=== PATIENT | male | born 1940 | race Caucasian/White ===

== ENCOUNTER 2017-08-05 01:45 | Emergency (ER) | payer MEDICARE, BC ==
--- NOTE | 2017-08-05 02:30 | EDM.PDOC ---
ED HPI GENERAL MEDICAL PROBLEM - General Chief Complaint: General Stated Complaint: abd pain Time Seen by Provider: 08/05/17 02:20 Source of Information: Reports: Patient - History of Present Illness INITIAL COMMENTS - FREE TEXT/NARRATIVE: Sol is a 77 year old male who presents to the ED with complaints of left lower abdominal pain. He reports he had a bowel movement this morning, strained , and the pain has been there ever since. He reports it won't go away so he came to the ER. He has been taking Tylenol. He last took Tylenol around 2129 yesterday evening. He does report he had inguinal hernia repair on the right on May 29. He reports he still has swelling in his right testicle. Denies a hernia on the left. Denies any fever, chills, chest pain, shortness of breath, recent illness, dysuria, frequency, urgency. Does report that he has been doctoring with Dr. Hatch. He had a positive ColoGuard and is supposed to be having a colonoscopy in the near future. Outside of the Onset Date: 08/04/17 Onset Time: 09:00 Duration: Constant Location: Reports: Abdomen Quality: Reports: Ache, Dull Severity: Moderate Improves with: Reports: Medication Worsens with: Reports: None Associated Symptoms: Reports: No Other Symptoms. Denies: Confusion, Chest Pain , Cough, cough w sputum, Diaphoresis, Fever/Chills, Headaches, Malaise, Nausea/ Vomiting, Rash, Seizure, Shortness of Breath, Syncope, Weakness Treatments HOG HANDLER: Reports: Acetaminophen Right Abdomen Pain Score (Numeric/FACES): 5 - Related Data Allergies Allergy/AdvReac Type Severity Reaction Status Date / Time atorvastatin calcium Allergy Rash Verified 08/05/17 02:24 [From Lipitor] cerivastatin sodium Allergy Rash Verified 08/05/17 02:24 [From Baycol] Home Meds: Home Meds Aspirin [[place] Chewable Aspirin] 81 mg PO DAILY 05/09/14 [History] Colestipol [Colestipol HCl] 1 gm PO BID 05/09/14 [History] Lisinopril [Lisinopril] 5 mg PO DAILY 05/09/14 [History] Metoprolol Succinate 50 mg PO DAILY 05/09/14 [History] Nitroglycerin [Nitrostat] 1 tab SL Q1H PRN 05/09/14 [History] Omeprazole [Omeprazole] 20 mg PO DAILY 05/09/14 [History] Rosuvastatin Calcium [Crestor] 20 mg PO Q48H 05/09/14 [History] Warfarin [Coumadin] 5 mg PO DAILY 05/09/14 [History] Hydrocodone/Acetaminophen [[place] 5-325 Tablet] 1 each PO Q6H PRN #15 tablet [Rx] NIFEdipine [Procardia] 10 mg PO DAILY #5 cap 08/05/17 [Rx] Tamsulosin [Tamsulosin 24 Hr] 0.4 mg PO DAILY #5 cap.er 08/05/17 [Rx] Social & Family History - Tobacco Use Smoking Status *Q: Never Smoker Years of Tobacco use: 3 - Recreational Drug Use Recreational Drug Use: No ED ROS GENERAL - Review of Systems Review Of Systems: ROS reveals no pertinent complaints other than HPI. Constitutional: Reports: Weight Loss. Denies: Fever, Chills, Weakness, Fatigue HEENT: Reports: No Symptoms Respiratory: Reports: No Symptoms. Denies: Shortness of Breath, Cough Cardiovascular: Reports: No Symptoms. Denies: Chest Pain, Dyspnea on Exertion, Edema, Lightheadedness, Syncope Endocrine: Reports: No Symptoms GI/Abdominal: Reports: Abdominal Pain (LLQ), Decreased Appetite. Denies: Black Stool, Bloody Stool, Constipation, Diarrhea, Hematochezia, Melena, Nausea, Vomiting : Reports: No Symptoms. Denies: Dysuria Neurological: Reports: No Symptoms Psychiatric: Reports: No Symptoms ED EXAM, GENERAL - Physical Exam Exam: See Below Exam Limited By: No Limitations General Appearance: Alert, WD/WN, No Apparent Distress Head: Atraumatic, Normocephalic Neck: Normal Inspection, Supple, Non-Tender, Full Range of Motion Respiratory/Chest: No Respiratory Distress, Lungs Clear, No Accessory Muscle Use , Chest Non-Tender, Decreased Breath Sounds Cardiovascular: Normal Peripheral Pulses, Regular Rate, Rhythm, No Edema, No Gallop, No JVD, No Murmur, No Rub GI/Abdominal: Normal Bowel Sounds, Soft, No Organomegaly, No Distention, No Abnormal Bruit, No Mass, Pelvis Stable, Tender (left lower quadrant/pelvic region). No: Guarding, Rigid, Rebound (Male) Exam: Hernia, Scrotal Swelling (right), Scrotum Tenderness (R). No: Circumcised Rectal (Males) Exam: Normal Exam Back Exam: Normal Inspection, Full Range of Motion. No: CVA Tenderness (L), CVA Tenderness (R) Extremities: Normal Inspection, Normal Range of Motion, Non-Tender, Normal Capillary Refill, No Pedal Edema Neurological: Alert, Oriented, CN II-XII Intact, Normal Cognition, Normal Gait, Normal Reflexes, No Motor/Sensory Deficits Psychiatric: Normal Affect, Normal Mood Skin Exam: Warm, Dry, Intact, Normal Color, No Rash Course - Vital Signs Last Recorded V/S: Last Vital Signs Temp 97.8 F 08/05/17 02:24 Pulse 100 08/05/17 02:24 Resp 18 08/05/17 02:24 BP 140/77 08/05/17 08:05 Pulse Ox 98 08/05/17 02:24 - Orders/Labs/Meds Orders: Active Orders 24 hr Category Date Time Status Abdomen Pelvis w Cont [CT] Stat Exams 08/05/17 02:31 Taken Sodium Chloride 0.9% [Normal Saline] 1,000 ml Med 08/05/17 04:00 Active IV ASDIRECTED fentaNYL [Sublimaze] Med 08/05/17 03:49 Active 50 mcg IVPUSH Q3H PRN Medication Orders Fentanyl (Sublimaze) 50 mcg IVPUSH Q3H PRN PRN Reason: Pain Last Admin: 08/05/17 08:09 Dose: 50 mcg Admin: 08/05/17 04:16 Dose: 50 mcg Sodium Chloride (Normal Saline) 1,000 mls @ 200 mls/hr IV ASDIRECTED WILDER Last Admin: 08/05/17 04:17 Dose: 200 mls/hr Labs: Laboratory Tests 08/05/17 08/05/17 08/05/17 Range/Units 02:15 02:15 02:15 WBC 6.4 (5.0-10.0) 10^3/uL RBC 4.70 (4.50-6.00) 10^6/uL Hgb 11.2 L (14.0-18.0) g/dL Hct 35.2 L (40.0-54.0) % MCV 74.9 L (82.0-94.0) fL MCH 23.8 L (27.0-32.0) pg MCHC 31.8 L (33.0-38.0) g/dL RDW Coeff of Laura 16.8 H (11.0-15.0) % Plt Count 289 (150-400) 10^3/uL Neut % (Auto) 88.6 H (35-85) % Lymph % (Auto) 6.7 L (10-55) % [place] % (Auto) 4.7 (0-16) % Eos % (Auto) 0 (0-5) % Baso % (Auto) 0 (0-3) % Neut # (Auto) 5.65 (1.80-7.00) 10^3/uL Lymph # (Auto) 0.43 L (1.00-4.80) 10^3/uL [place]fe # (Auto) 0.30 (0.00-0.80) 10^3/uL Eos # (Auto) 0.00 (0.00-0.45) 10^3/uL Baso # (Auto) 0.00 10^3/uL PT 42.5 H (9.7-12.3) SEC INR 3.78 H (0.92-1.18) Sodium 134 L (136-145) mEq/L Potassium 3.7 (3.5-5.0) mEq/L Chloride 98 (98-106) mEq/L Carbon Dioxide 23 (21-32) mmol/L BUN 13 (7-18) mg/dL Creatinine 1.1 (0.7-1.3) mg/dL Est Cr Clr Drug Dosing 46.16 mL/min Estimated GFR (MDRD) > 60 (>=60) mL/min Glucose 141 H (75-99) mg/dL Calcium 8.7 (8.4-10.1) mg/dL Total Bilirubin 0.8 (0.0-1.0) mg/dL AST 26 (15-37) U/L ALT 14 (12-78) U/L Alkaline Phosphatase 65 (46-116) U/L Troponin I < 0.017 (0.00-0.06) ng/mL C-Reactive Protein 5.9 H (0.2-0.8) mg/dL Total Protein 7.5 (6.4-8.2) g/dL Albumin 2.6 L (3.4-5.0) g/dL Urine Color (YELLOW) Urine Appearance (CLEAR) Urine pH (4.5-8.0) Ur Specific [place] (1.003-1.020) Urine Protein (NEGATIVE) mg/dL Urine Glucose (UA) (NEGATIVE) mg/dL Urine Ketones (NEGATIVE) mg/dL Urine Occult Blood (NEGATIVE) Urine Nitrite (NEGATIVE) Urine Bilirubin (NEGATIVE) Urine Urobilinogen (0.2-1.0) EU/dL Ur Leukocyte Esterase (NEGATIVE) Urine RBC (0-5) /HPF Urine WBC (0-5) /HPF Ur Squamous Epith Cells (NOT SEEN) /HPF Amorphous Sediment (NOT SEEN) /HPF Urine Bacteria (NOT SEEN) /HPF 08/05/17 Range/Units 02:34 WBC (5.0-10.0) 10^3/uL RBC (4.50-6.00) 10^6/uL Hgb (14.0-18.0) g/dL Hct (40.0-54.0) % MCV (82.0-94.0) fL MCH (27.0-32.0) pg MCHC (33.0-38.0) g/dL RDW Coeff of Laura (11.0-15.0) % Plt Count (150-400) 10^3/uL Neut % (Auto) (35-85) % Lymph % (Auto) (10-55) % [place] % (Auto) (0-16) % Eos % (Auto) (0-5) % Baso % (Auto) (0-3) % Neut # (Auto) (1.80-7.00) 10^3/uL Lymph # (Auto) (1.00-4.80) 10^3/uL [place] # (Auto) (0.00-0.80) 10^3/uL Eos # (Auto) (0.00-0.45) 10^3/uL Baso # (Auto) 10^3/uL PT (9.7-12.3) SEC INR (0.92-1.18) Sodium (136-145) mEq/L Potassium (3.5-5.0) mEq/L Chloride (98-106) mEq/L Carbon Dioxide (21-32) mmol/L BUN (7-18) mg/dL Creatinine (0.7-1.3) mg/dL Est Cr Clr Drug Dosing mL/min Estimated GFR (MDRD) (>=60) mL/min Glucose (75-99) mg/dL Calcium (8.4-10.1) mg/dL Total Bilirubin (0.0-1.0) mg/dL AST (15-37) U/L ALT (12-78) U/L Alkaline Phosphatase (46-116) U/L Troponin I (0.00-0.06) ng/mL C-Reactive Protein (0.2-0.8) mg/dL Total Protein (6.4-8.2) g/dL Albumin (3.4-5.0) g/dL Urine Color Yellow (YELLOW) Urine Appearance Clear (CLEAR) Urine pH 7.0 (4.5-8.0) Ur Specific [place] 1.020 (1.003-1.020) Urine Protein Trace H (NEGATIVE) mg/dL Urine Glucose (UA) Negative (NEGATIVE) mg/dL Urine Ketones 40 H (NEGATIVE) mg/dL Urine Occult Blood Trace-intact H (NEGATIVE) Urine Nitrite Negative (NEGATIVE) Urine Bilirubin Negative (NEGATIVE) Urine Urobilinogen 0.2 (0.2-1.0) EU/dL Ur Leukocyte Esterase Negative (NEGATIVE) Urine RBC 0-5 (0-5) /HPF Urine WBC 0-5 (0-5) /HPF Ur Squamous Epith Cells Occasional H (NOT SEEN) /HPF Amorphous Sediment Occasional H (NOT SEEN) /HPF Urine Bacteria Occasional H (NOT SEEN) /HPF Meds: Medications Generic Name Dose Route Start Last Admin Trade Name Freq PRN Reason Stop Dose Admin Fentanyl 50 mcg 08/05/17 03:49 08/05/17 08:09 Sublimaze IVPUSH 50 mcg Q3H PRN Administration Pain Sodium Chloride 1,000 mls @ 200 mls/hr 08/05/17 04:00 08/05/17 04:17 Normal Saline IV 200 mls/hr ASDIRECTED WILDER Administration Discontinued Medications Generic Name Dose Route Start Last Admin Trade Name Freq PRN Reason Stop Dose Admin Fentanyl 25 mcg 08/05/17 03:24 08/05/17 03:31 Sublimaze IVPUSH 08/05/17 03:25 25 mcg STAT STA Administration Iopamidol 100 ml 08/05/17 02:54 08/05/17 03:18 Isovue-300 (61%) IVPUSH 08/05/17 02:55 100 ml ONETIME ONE Administration Nifedipine 10 mg 08/05/17 07:49 08/05/17 08:05 Procardia PO 08/05/17 07:50 10 mg ONETIME ONE Administration Tamsulosin HCl 0.4 mg 08/05/17 03:49 08/05/17 04:16 Flomax PO 08/05/17 03:50 0.4 mg ONETIME ONE Administration - Radiology Interpretation Free Text/Narrative:: 1.8 mm kidney stone in UBJ. Nonobstructing. Small amount of hydronephrosis to left kidney. Will keep in extended stay ER until morning for pain control. CT Results Date: 08/05/17 CT Results Time: 03:48 - Re-Assessments/Exams Free Text/Narrative Re-Assessment/Exam: 08/05/17 02:31 Labs discussed with patient and . Will get CT of abdomen pelvis to r/o incarcerated hernia. 08/05/17 03:26 Patient reports his LLQ abdominal pain worsened after moving for CT scan. Fentanyl 25 mcg ordered. 08/05/17 08:42 Patient reports that he does not have any pain currently. He is sitting at edge of the bed eating breakfast. Appears in no acute distress. Will discharge home. Patient to follow up with Dr. Hatch on Saturday as scheduled. Departure - Departure Time of Disposition: 08:50 Disposition: Home, Self-Care 01 Condition: Good Clinical Impression: Kidney stone on left side, Hydronephrosis of left kidney - Discharge Information Referrals: Nile Hatch MD [Primary Care Provider] - Forms: ED Department Discharge Additional Instructions: Push fluids Procardia daily x 5 days Flomax daily x 5 days [place] 1 tab every 4-6 hours as needed for pain Hold Coumadin until f/u appointment on Saturday with Dr. Hatch Follow up with Dr. Hatch on Saturday - My Orders Last 24 Hours: My Active Orders 08/05/17 02:31 Abdomen Pelvis w Cont [CT] Stat 08/05/17 03:49 fentaNYL [Sublimaze] 50 mcg IVPUSH Q3H PRN 08/05/17 04:00 Sodium Chloride 0.9% [Normal Saline] 1,000 ml IV ASDIRECTED - Assessment/Plan Last 24 Hours: My Active Orders 08/05/17 02:31 Abdomen Pelvis w Cont [CT] Stat 08/05/17 03:49 fentaNYL [Sublimaze] 50 mcg IVPUSH Q3H PRN 08/05/17 04:00 Sodium Chloride 0.9% [Normal Saline] 1,000 ml IV ASDIRECTED
[2017-08-05 02:43] LABS: CHLORIDE,CL 98 mEq/L (98-106)
[2017-08-05 02:49] LABS: SODIUM,NA 134 mEq/L (136-145)
[2017-08-05] MEDS ORDERED: Iopamidol 612 MG/ML 100 ML Bottle IVPUSH ONE (02:54)
[2017-08-05] MEDS ORDERED: fentaNYL 100 MCG/2 ML SDV IVPUSH STA (03:24)
[2017-08-05] MEDS ORDERED: Tamsulosin 0.4 MG Cap.ER PO ONE (03:49)
[2017-08-05] MEDS ORDERED: Sodium Chloride 0.9% 1,000 ML IV SCH (04:00)
[2017-08-05] MEDS: fentaNYL 100 MCG/2 ML SDV IVPUSH PRN ×2 (04:16→08:09)
[2017-08-05] MEDS ORDERED: NIFEdipine 10 MG Cap PO ONE (07:49)
[2017-08-05 08:07] VITALS: BP 140/77
== END 2017-08-05 09:50 | disposition home or self-care (01) ==
LOC: CC.ED 01:45
DX: N13.2 Hydronephrosis with renal and ureteral calculous obstruction (principal); Z88.8 Allergy status to other drugs, medicaments and biological substances; Z79.82 Long term (current) use of aspirin; Z79.01 Long term (current) use of anticoagulants; Z79.899 Other long term (current) drug therapy; Z72.0 Tobacco use
CPT/HCPCS: 36415; 74177; 80053; 81001; 84484; 85025; 85610; 86140; 96361; 96374; 96375; 96376; 99284; A9270; J3010; J7030; Q9967

== ENCOUNTER → 2017-08-09 | Day surgery (SDC) | payer MEDICARE, BC ==
[~2017-08-09] MED LIST: Lactated Ringers 1,000 ML IV SCH; Propofol 200 MG/20 ML SDV IV ONE
[2017-08-09 08:31] VITALS: BP 127/63
--- NOTE | 2017-08-09 13:30 | OR ---
DATE OF OPERATION: 08/09/2017 PREOPERATIVE DIAGNOSIS: 1. GASTROESOPHAGEAL REFLUX DISEASE. 2. POSITIVE COLOGUARD. POSTOPERATIVE DIAGNOSIS: 1. GASTROESOPHAGEAL REFLUX DISEASE. 2. POSITIVE COLOGUARD. SURGEON: Dutch Chacon MD PROCEDURE: 1. EGD WITH BIOPSIES X2, KEVIN. 2. FULL-LENGTH COLONOSCOPY WITH BIOPSIES X3. FINDINGS: 1. Full-length EGD. 2. Diffuse gastritis. 3. Large hiatal hernia with spontaneous GERD without esophagitis. 4. Full-length colonoscopy. 5. Left-sided colitis, mild and nonspecific. RECOMMENDATIONS: Medical followup by Dr. Hatch. INDICATIONS: The patient was in to see Dr. Hatch. Apparently, he had a positive Cologuard and has been having some chronic GERD. Dr. Hatch recommended upper and lower endoscopy. DESCRIPTION OF PROCEDURE: The patient was prepped and draped, placed in the left lateral decubitus position. A lubricated Olympus gastroscope was inserted over a bit and advanced to cricopharyngeus area and easily intubated in the esophagus. The esophageal lining was benign in its entire course. The Z-line was crisp and sharp around 36 cm. There was a moderate sized hiatal hernia present with spontaneous reflux, but no distal esophagitis, stricturing, ulceration, or Moya's changes. The scope was advanced into the stomach through the pylorus and into the second portion of the duodenum. This and the duodenal bulb appeared benign. The scope was brought back into the stomach and retroflexed. There was a large hiatal hernia visualized from below. The upper fundus and cardia portions of the stomach were benign. The patient did have diffuse gastritis, most prominent in the antrum and appears chronic without any active change or bleeding. Two biopsies of the affected area were taken along with a KEVIN test. No other masses or lesions were seen. Air was suctioned and the scope was removed without complication. A lubricated Olympus colonoscope was inserted and safely and easily advanced to the cecum. Directly visualized the ileocecal valve and appendiceal orifice. The bowel prep was fine. Upon withdrawal of the scope, throughout the entire length of the colon, I could find no signs of any worrisome polyps, mass, ulcerations, or bleeding sites. The patient had a few scattered diverticula in the sigmoid region at the splenic flexure and extending through most of the sigmoid. There were skipped areas of colitis, very mild, and nonspecific. Biopsies were taken at the splenic flexure, sigmoid colon, and rectal vault, all the areas of colitis. Retroflexion of scope in the rectum showed no perianal lesions. I could find no signs of any worrisome polyps or masses removed throughout the length of this colon. Air was suctioned, and the scope was removed without complication. FRANKIE/PHUC /[id number]
== END ==
LOC: CC.SDS 07:10
PROVIDERS: ATTEND Family Medicine
DX: K52.9 Noninfective gastroenteritis and colitis, unspecified (principal); K62.89 Other specified diseases of anus and rectum; K57.30 Diverticulosis of large intestine without perforation or abscess without bleeding; K44.9 Diaphragmatic hernia without obstruction or gangrene; K29.50 Unspecified chronic gastritis without bleeding; K21.9 Gastro-esophageal reflux disease without esophagitis; R19.5 Other fecal abnormalities; Z79.01 Long term (current) use of anticoagulants; Z88.8 Allergy status to other drugs, medicaments and biological substances
CPT/HCPCS: 00813; 36415; 43239; 45380; 85610; 87081; 88305; J2704; J7120

== ENCOUNTER 2018-07-31 08:18 | Inpatient (IN) | payer MEDICARE, BC ==
--- NOTE | 2018-07-31 09:49 | EDM.PDOC ---
ED HPI GENERAL MEDICAL PROBLEM - General Chief Complaint: Respiratory Problem Stated Complaint: SOB Time Seen by Provider: 07/31/18 08:45 Source of Information: Reports: Patient History Limitations: Reports: No Limitations - History of Present Illness INITIAL COMMENTS - FREE TEXT/NARRATIVE: Patient presents to ER per EMS with acute onset shortness of breath. He states he got up to the bathroom this am and felt sudden shortness of breath. Did subside by the time EMS arrived but his oxygen level was mid 80s. Did improve to 98% on 2 liters of oxygen. He denies having any history of chronic lung concerns. Has not been ill, no cough or wheezing. He relates he was in the hospital in [place] 3-4 months ago for lupus. Was seen by rheumatology and started on prednisone. Has been experiencing mid back pain. No chest pain. Has not had any swelling in his legs as of late. Onset: Today, Sudden Duration: Hour(s): Location: Reports: Chest, Back Quality: Reports: Ache Severity: Moderate Improves with: Reports: Rest Worsens with: Reports: Movement Associated Symptoms: Reports: Shortness of Breath, Weakness. 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: Reports: Oxygen, See EMS Report - Related Data Allergies Allergy/AdvReac Type Severity Reaction Status Date / Time atorvastatin calcium Allergy Rash Verified 07/31/18 08:33 [From Lipitor] cerivastatin sodium Allergy Rash Verified 07/31/18 08:33 [From Baycol] lisinopril Allergy Cannot Verified 07/31/18 08:33 Remember Home Meds: Home Meds Metoprolol Succinate 50 mg PO DAILY 05/09/14 [History] Rosuvastatin Calcium [Crestor] 20 mg PO Q48H 05/09/14 [History] Calcium Carb/Magnesium Oxid/D3 [Calcium Magnesium + D] 1 tab PO DAILY 08/07/17 [ History] Cholecalciferol (Vitamin D3) [Vitamin D3] 2,000 unit PO DAILY 08/07/17 [History] Multivitamin [Multi-Day Vitamins] 1 tab PO DAILY 08/07/17 [History] Alendronate Sodium [Fosamax] 1 tab PO WEEKLY 07/31/18 [History] Ferrous Sulfate [Iron] 1 tab PO Q48H 07/31/18 [History] Ranitidine HCl [Zantac] 1 tab PO BID 07/31/18 [History] Sulfamethoxazole/Trimethoprim [Sulfamethoxazole-Tmp Ds Tablet] 1 tab PO ASDIRECTED 07/31/18 [History] predniSONE [Prednisone] 60 mg PO DAILY 07/31/18 [History] Past Medical History HEENT History: Reports: None Cardiovascular History: Reports: [place] Respiratory History: Reports: None Gastrointestinal History: Reports: None Genitourinary History: Reports: None Musculoskeletal History: Reports: None Neurological History: Reports: None Psychiatric History: Reports: None Endocrine/Metabolic History: Reports: None Other Hematologic History: diagnosed with Lupus Immunologic History: Reports: None Oncologic (Cancer) History: Reports: Prostate Dermatologic History: Reports: None - Infectious Disease History Infectious Disease History: Reports: None - Past Surgical History Head Surgeries/Procedures: Reports: None HEENT Surgical History: Reports: None Cardiovascular Surgical History: Reports: Coronary Artery Bypass, Coronary Artery Stent Respiratory Surgical History: Reports: None GI Surgical History: Reports: Cholecystectomy, Hernia, Abdominal, Sandra Fundoplication Male Surgical History: Reports: Prostatectomy Endocrine Surgical History: Reports: None Neurological Surgical History: Reports: None Musculoskeletal Surgical History: Reports: None Oncologic Surgical History: Reports: None Dermatological Surgical History: Reports: None Social & Family History - Family History Family Medical History: Noncontributory - Tobacco Use Smoking Status *Q: Former Smoker Used Tobacco, but Quit: Yes Month/Year Tobacco Last Used: 1959 ED ROS GENERAL - Review of Systems Review Of Systems: See Below Constitutional: Denies: Fever, Chills, Malaise, Weakness HEENT: Denies: Ear Pain, Rhinitis, Throat Pain, Vertigo Respiratory: Reports: Shortness of Breath. Denies: Wheezing, Cough Cardiovascular: Denies: Chest Pain, Edema, Lightheadedness Endocrine: Reports: Fatigue GI/Abdominal: Denies: Abdominal Pain, Black Stool, Bloody Stool, Nausea, Vomiting : Reports: No Symptoms Musculoskeletal: Reports: Back Pain (upper back pain) Skin: Reports: No Symptoms Neurological: Reports: No Symptoms ED EXAM, GENERAL - Physical Exam Exam: See Below Exam Limited By: No Limitations General Appearance: Alert, WD/WN, No Apparent Distress Ears: Normal External Exam, Normal TMs Nose: Normal Inspection, Normal Mucosa, No Blood Throat/Mouth: Normal Inspection, Normal Oropharynx Head: Normocephalic Neck: Normal Inspection, Supple, Non-Tender Respiratory/Chest: No Respiratory Distress, Lungs Clear, Other (Does get short of breath when ambulating) Cardiovascular: Regular Rate, Rhythm GI/Abdominal: Normal Bowel Sounds, Soft, Non-Tender Back Exam: Normal Inspection, Full Range of Motion. No: Paraspinal Tenderness, Vertebral Tenderness Extremities: Normal Inspection, No Pedal Edema Neurological: Alert, Oriented Skin Exam: Warm, Dry Course - Vital Signs Last Recorded V/S: Last Vital Signs Temp 99.0 F 07/31/18 13:07 Pulse 104 H 07/31/18 13:07 Resp 16 07/31/18 13:07 BP 139/79 07/31/18 13:07 Pulse Ox 95 07/31/18 13:07 - Orders/Labs/Meds Orders: Active Orders 24 hr Category Date Time Status Ang Chest [CT] Stat Exams 07/31/18 10:15 Taken Chest 2V [CR] Stat Exams 07/31/18 08:36 Taken Medication Orders Acetaminophen (Tylenol) 650 mg PO Q4H PRN PRN Reason: Pain (Mild 1-3)/fever Apixaban (Eliquis) 10 mg PO BID [facility] Stop: 08/06/18 20:01 Last Admin: 07/31/18 15:02 Dose: 10 mg Magnesium Hydroxide (Milk Of Magnesia) 30 ml PO Q12H PRN PRN Reason: Constipation Ondansetron HCl (Zofran Odt) 4 mg PO Q4H PRN PRN Reason: nausea, able to take PO Ondansetron HCl (Zofran) 4 mg IV Q4H PRN PRN Reason: Nausea/Vomiting Pantoprazole Sodium (Protonix Iv) 40 mg IVPUSH 0800 [facility] Last Admin: 07/31/18 15:02 Dose: 40 mg Sodium Chloride (Saline Flush) 10 ml FLUSH ASDIRECTED PRN PRN Reason: Keep Vein Open Temazepam (Restoril) 15 mg PO BEDTIME PRN PRN Reason: Sleep Labs: Laboratory Tests 07/31/18 07/31/18 07/31/18 Range/Units 08:30 08:33 08:33 WBC 18.9 H (5.0-10.0) 10^3/uL RBC 5.46 (4.50-6.00) 10^6/uL Hgb 14.6 (14.0-18.0) g/dL Hct 45.6 (40.0-54.0) % MCV 83.5 (82.0-94.0) fL MCH 26.7 L (27.0-32.0) pg MCHC 32.0 L (33.0-38.0) g/dL RDW Coeff of Laura 19.6 H (11.0-15.0) % Plt Count 94 L (150-400) 10^3/uL Add Manual Diff Yes Neutrophils % (Manual) 78 (35-85) % Band Neutrophils % 3 (0-5) % Lymphocytes % (Manual) 13 L (21-55) % Monocytes % (Manual) 3 (2-12) % Eosinophils % (Manual) 1 (0-5) % PT 11.0 (9.7-12.3) SEC INR 1.06 (0.92-1.18) APTT 20.7 L (23.2-32.3) SEC D-Dimer, Quantitative 48.18 H (0.00-0.50) Sodium (136-145) mEq/L Potassium (3.5-5.0) mEq/L Chloride (98-106) mEq/L Carbon Dioxide (21-32) mmol/L BUN (7-18) mg/dL Creatinine (0.7-1.3) mg/dL Est Cr Clr Drug Dosing mL/min Estimated GFR (MDRD) (>=60) mL/min Glucose (75-99) mg/dL Calcium (8.4-10.1) mg/dL Total Bilirubin (0.0-1.0) mg/dL AST (15-37) U/L ALT (12-78) U/L Alkaline Phosphatase (46-116) U/L Lactate Dehydrogenase (100-190) U/L Creatine Kinase (35-232) U/L Troponin I (0.00-0.06) ng/mL C-Reactive Protein 1.4 H (0.2-0.8) mg/dL NT-Pro-B Natriuret Pep (0-1000) pg/mL Total Protein (6.4-8.2) g/dL Albumin (3.4-5.0) g/dL 07/31/18 Range/Units 08:33 WBC (5.0-10.0) 10^3/uL RBC (4.50-6.00) 10^6/uL Hgb (14.0-18.0) g/dL Hct (40.0-54.0) % MCV (82.0-94.0) fL MCH (27.0-32.0) pg MCHC (33.0-38.0) g/dL RDW Coeff of Laura (11.0-15.0) % Plt Count (150-400) 10^3/uL Add Manual Diff Neutrophils % (Manual) (35-85) % Band Neutrophils % (0-5) % Lymphocytes % (Manual) (21-55) % Monocytes % (Manual) (2-12) % Eosinophils % (Manual) (0-5) % PT (9.7-12.3) SEC INR (0.92-1.18) APTT (23.2-32.3) SEC D-Dimer, Quantitative (0.00-0.50) Sodium 141 (136-145) mEq/L Potassium 4.7 (3.5-5.0) mEq/L Chloride 102 (98-106) mEq/L Carbon Dioxide 28 (21-32) mmol/L BUN 21 H (7-18) mg/dL Creatinine 1.2 (0.7-1.3) mg/dL Est Cr Clr Drug Dosing 41.80 mL/min Estimated GFR (MDRD) 58 L (>=60) mL/min Glucose 113 H (75-99) mg/dL Calcium 9.0 (8.4-10.1) mg/dL Total Bilirubin 2.1 H (0.0-1.0) mg/dL AST 32 (15-37) U/L ALT 55 (12-78) U/L Alkaline Phosphatase 76 (46-116) U/L Lactate Dehydrogenase 310 H (100-190) U/L Creatine Kinase 35 (35-232) U/L Troponin I 0.035 (0.00-0.06) ng/mL C-Reactive Protein (0.2-0.8) mg/dL NT-Pro-B Natriuret Pep 251 (0-1000) pg/mL Total Protein 7.4 (6.4-8.2) g/dL Albumin 3.3 L (3.4-5.0) g/dL Meds: Medications Generic Name Dose Route Start Last Admin Trade Name Freq PRN Reason Stop Dose Admin Acetaminophen 650 mg 07/31/18 14:38 Tylenol PO Q4H PRN Pain (Mild 1-3)/fever Apixaban 10 mg 07/31/18 15:00 07/31/18 15:02 Eliquis PO 08/06/18 20:01 10 mg BID WILDER Administration Magnesium Hydroxide 30 ml 07/31/18 14:38 Milk Of Magnesia PO Q12H PRN Constipation Ondansetron HCl 4 mg 07/31/18 14:38 Zofran Odt PO Q4H PRN nausea, able to take PO Ondansetron HCl 4 mg 07/31/18 14:38 Zofran IV Q4H PRN Nausea/Vomiting Pantoprazole Sodium 40 mg 07/31/18 14:38 07/31/18 15:02 Protonix Iv IVPUSH 40 mg 0800 [facility]ILDER Administration Sodium Chloride 10 ml 07/31/18 14:38 Saline Flush FLUSH ASDIRECTED PRN Keep Vein Open Temazepam 15 mg 07/31/18 14:38 Restoril PO BEDTIME PRN Sleep Discontinued Medications Generic Name Dose Route Start Last Admin Trade Name Freq PRN Reason Stop Dose Admin Iopamidol 100 ml 07/31/18 10:40 07/31/18 11:20 Isovue-370 (76%) IVPUSH 07/31/18 10:41 100 ml ONETIME ONE Administration - Re-Assessments/Exams Free Text/Narrative Re-Assessment/Exam: 07/31/18 Labs reviewed. WBC mildly elevated, likely from the prednisone he is on. D- dimer high at 48. Proceed with CTA of chest. While reviewing chart and discussing history with patient, he does relate that he had been on Coumadin in the past, is unsure why but charts show distant TIA. He relates he discussed with Susana his dissatisfaction of frequent blood draws for his INR so he was switched to Eliquis. This was stopped last fall due to blood in his stools. He has not noted any of that as of late. 1330 CT report received. Does have bilateral PE and moderate pulmonary hypertension. Will admit. Start on Eliquis cautiously with Protonix. Oxygen as needed as he does continue to desat with activity to mid 80s. Dr. Page aware of admission and agrees with plan. Departure - Departure Time of Disposition: 13:30 Disposition: Admitted As Inpatient 65 Condition: Fair Clinical Impression: Pulmonary emboli Qualifiers: Pulmonary embolism type: unspecified Chronicity: acute Acute cor pulmonale presence: without acute cor pulmonale Qualified Code(s): I26.99 - Other pulmonary embolism without acute cor pulmonale - Discharge Information *PRESCRIPTION DRUG MONITORING PROGRAM REVIEWED*: No *COPY OF PRESCRIPTION DRUG MONITORING REPORT IN PATIENT ADILIA: No - Problem List & Annotations (1) Pulmonary emboli SNOMED Code(s): 01970512 Code(s): I26.99 - OTHER PULMONARY EMBOLISM WITHOUT ACUTE COR PULMONALE Status: Acute Priority: High Current Visit: Yes Qualifiers: Pulmonary embolism type: unspecified Chronicity: acute Acute cor pulmonale presence: without acute cor pulmonale Qualified Code(s): I26.99 - Other pulmonary embolism without acute cor pulmonale - Problem List Review Problem List Initiated/Reviewed/Updated: Yes - My Orders Last 24 Hours: My Active Orders 07/31/18 08:36 Chest 2V [CR] Stat 07/31/18 10:15 Ang Chest [CT] Stat - Assessment/Plan Admission H&P: Please use this note as an admission H&P Last 24 Hours: My Active Orders 07/31/18 08:36 Chest 2V [CR] Stat 07/31/18 10:15 Ang Chest [CT] Stat Assessment:: Pulmonary Emboli Plan: Admit to inpatient for PE. Oxygen as needed. Start Eliquis with GI protection with Protonix.
[2018-07-31] MEDS ORDERED: Iopamidol 755 Mg/ML 100 ML Bottle IVPUSH ONE (10:40)
[2018-07-31] MEDS ORDERED: Ondansetron 4 MG Tab.DIS PO PRN (14:38)
[2018-07-31] MEDS ORDERED: Ondansetron 4 MG/2 ML SDV IV PRN (14:38)
[2018-07-31] MEDS ORDERED: Acetaminophen 325 MG Tab PO PRN (14:38)
[2018-07-31] MEDS ORDERED: Magnesium Hydroxide 400 MG/5 ML Susp 30 ML Cup PO PRN (14:38)
[2018-07-31] MEDS ORDERED: Temazepam 15 MG Cap PO PRN (14:38)
[2018-07-31] MEDS ORDERED: Sodium Chloride 0.9% 10 ML Syringe FLUSH PRN (14:38)
[2018-07-31] MEDS: Apixaban 5 MG Tab PO SCH ×2 (15:02→19:47)
[2018-07-31] MEDS: Pantoprazole 40 MG Vial IVPUSH SCH (15:02)
[2018-08-01 07:23] LABS: CHLORIDE,CL 103 mEq/L (98-106); SODIUM,NA 141 mEq/L (136-145)
[2018-08-01] MEDS: Apixaban 5 MG Tab PO SCH ×2 (08:10→19:49)
[2018-08-01] MEDS: Pantoprazole 40 MG Vial IVPUSH SCH (08:10)
[2018-08-01] MEDS: Calcium Carbonate/Vitamin D3 1250 MG-200 Unit Tab PO SCH (09:18)
[2018-08-01] MEDS: Multivitamin Tab PO SCH (09:19)
[2018-08-01] MEDS: predniSONE 20 MG Tab PO SCH (09:19)
[2018-08-01] MEDS: Metoprolol Succinate 25 MG Tab.ER PO SCH (09:19)
[2018-08-01] MEDS: Cholecalciferol (Vitamin D3) 1,000 Unit Tab PO SCH (09:20)
[2018-08-01] MEDS: Ferrous Sulfate 324 MG Tab.EC PO SCH (09:21)
[2018-08-01] MEDS: Simvastatin 40 MG Tab PO SCH (09:23)
--- NOTE | 2018-08-01 21:04 | PCM.PN ---
- General Info Date of Service: 08/01/18 Admission Dx/Problem (Free Text): Bilateral PE Functional Status: Reports: Pain Controlled, Tolerating Diet, Ambulating - Review of Systems General: Reports: Weakness. Denies: Fever HEENT: Reports: No Symptoms Pulmonary: Reports: Shortness of Breath. Denies: Cough Cardiovascular: Denies: Chest Pain, Edema, Lightheadedness Gastrointestinal: Denies: Abdominal Pain, Nausea, Vomiting Genitourinary: Reports: No Symptoms Musculoskeletal: Reports: No Symptoms Skin: Reports: No Symptoms Neurological: Reports: No Symptoms Psychiatric: Reports: No Symptoms - Patient Data Vitals - Most Recent: Last Vital Signs Temp 98.2 F 08/01/18 20:00 Pulse 99 08/01/18 20:00 Resp 20 08/01/18 20:00 BP 131/73 08/01/18 20:00 Pulse Ox 94 L 08/01/18 20:00 Weight - Most Recent: 144 lb 3.2 oz Lab Results Last 24 Hours: Laboratory Results - last 24 hr 08/01/18 08/01/18 Range/Units 07:00 07:00 WBC 12.7 H (5.0-10.0) 10^3/uL RBC 5.10 (4.50-6.00) 10^6/uL Hgb 13.6 L (14.0-18.0) g/dL Hct 42.5 (40.0-54.0) % MCV 83.3 (82.0-94.0) fL MCH 26.7 L (27.0-32.0) pg MCHC 32.0 L (33.0-38.0) g/dL RDW Coeff of Laura 19.1 H (11.0-15.0) % Plt Count 93 L (150-400) 10^3/uL Neut % (Auto) 77.8 (35-85) % Lymph % (Auto) 12.6 (10-55) % [place] % (Auto) 8.4 (0-16) % Eos % (Auto) 0.9 (0-5) % Baso % (Auto) 0.3 (0-3) % Neut # (Auto) 9.86 H (1.80-7.00) 10^3/uL Lymph # (Auto) 1.60 (1.00-4.80) 10^3/uL [place] # (Auto) 1.07 H (0.00-0.80) 10^3/uL Eos # (Auto) 0.11 (0.00-0.45) 10^3/uL Baso # (Auto) 0.04 10^3/uL Sodium 141 (136-145) mEq/L Potassium 4.3 (3.5-5.0) mEq/L Chloride 103 (98-106) mEq/L Carbon Dioxide 26 (21-32) mmol/L BUN 18 (7-18) mg/dL Creatinine 1.0 (0.7-1.3) mg/dL Est Cr Clr Drug Dosing 50.16 mL/min Estimated GFR (MDRD) > 60 (>=60) mL/min Glucose 124 H (75-99) mg/dL Calcium 8.6 (8.4-10.1) mg/dL C-Reactive Protein 3.7 H (0.2-0.8) mg/dL Med Orders - Current: Current Medications Acetaminophen (Tylenol) 650 mg PO Q4H PRN PRN Reason: Pain (Mild 1-3)/fever Apixaban (Eliquis) 10 mg PO BID [facility] Stop: 08/06/18 20:01 Last Admin: 08/01/18 19:49 Dose: 10 mg Calcium Carbonate (Calcium Carbonate/Vitamin D 1250 Mg-200 Unit) 1 tab PO DAILY [facility] Last Admin: 08/01/18 09:18 Dose: 1 tab Cholecalciferol (Vitamin D3) 2,000 units PO DAILY [facility] Last Admin: 08/01/18 09:20 Dose: 2,000 units Ferrous Sulfate (Ferrous Sulfate) 324 mg PO Q48H [facility] Last Admin: 08/01/18 09:21 Dose: 324 mg Magnesium Hydroxide (Milk Of Magnesia) 30 ml PO Q12H PRN PRN Reason: Constipation Metoprolol Succinate (Toprol Xl) 50 mg PO DAILY [facility] Last Admin: 08/01/18 09:19 Dose: 50 mg Multivitamins/Minerals/Vitamin C (Tab-A-Celso) 1 tab PO DAILY [facility] Last Admin: 08/01/18 09:19 Dose: 1 tab Ptom Alendronate Sodium [Fosamax] 1 Tab 1 tab PO Heath [facility] Ondansetron HCl (Zofran Odt) 4 mg PO Q4H PRN PRN Reason: nausea, able to take PO Ondansetron HCl (Zofran) 4 mg IV Q4H PRN PRN Reason: Nausea/Vomiting Pantoprazole Sodium (Protonix Iv) 40 mg IVPUSH 0800 [facility] Last Admin: 08/01/18 08:10 Dose: 40 mg Prednisone (Prednisone) 60 mg PO DAILY [facility] Last Admin: 08/01/18 09:19 Dose: 60 mg Simvastatin (Zocor) 40 mg PO Q48H [facility] Last Admin: 08/01/18 09:23 Dose: 40 mg Sodium Chloride (Saline Flush) 10 ml FLUSH ASDIRECTED PRN PRN Reason: Keep Vein Open Temazepam (Restoril) 15 mg PO BEDTIME PRN PRN Reason: Sleep Discontinued Medications Iopamidol (Isovue-370 (76%)) 100 ml IVPUSH ONETIME ONE Stop: 07/31/18 10:41 Last Admin: 07/31/18 11:20 Dose: 100 ml - Exam Quality Assessment: Supplemental Oxygen General: Alert, Oriented HEENT: Mucous Membr. Moist/[place] Neck: Supple Lungs: Clear to Auscultation, Normal Respiratory Effort Cardiovascular: Regular Rate, Regular Rhythm GI/Abdominal Exam: Normal Bowel Sounds, Soft, Non-Tender Extremities: Normal Inspection, No Pedal Edema Skin: Warm, Dry Neurological: No New Focal Deficit - Problem List & Annotations (1) Pulmonary emboli SNOMED Code(s): 48557910 Code(s): I26.99 - OTHER PULMONARY EMBOLISM WITHOUT ACUTE COR PULMONALE Status: Acute Priority: High Current Visit: Yes Qualifiers: Pulmonary embolism type: unspecified Chronicity: acute Acute cor pulmonale presence: without acute cor pulmonale Qualified Code(s): I26.99 - Other pulmonary embolism without acute cor pulmonale - Problem List Review Problem List Initiated/Reviewed/Updated: Yes - My Orders Last 24 Hours: My Active Orders 08/01/18 08:30 Calcium Carbonate/Vitamin D3 [Calcium Carbonate/Vitamin D 1250 MG-200 Unit] 1 tab PO DAILY Cholecalciferol (Vitamin D3) [Vitamin D3] 2,000 units PO DAILY Ferrous Sulfate 324 mg PO Q48H Metoprolol Succinate [Toprol XL] 50 mg PO DAILY Multivitamins [Tab-A-Celso] 1 tab PO DAILY Simvastatin [Zocor] 40 mg PO Q48H predniSONE 60 mg PO DAILY 08/03/18 12:00 Alendronate Sodium [Fosamax] 1 tab PO Heath - Assessment Assessment:: Bilateral Pulmonary Emboli - Plan Plan:: Patient feels good at rest this am. Does admit that feels short of breath with activity but can tolerate short distances better than was able to yesterday. Reports has had BM since admission and has not noted any blood. Oxygen sats 91- 92% on 2 liters, does drop to 86% with activity. Afebrile. Blood pressure 148/ 79. WBC 12.7 this am, CRP 3.7. Will continue with Eliquis. GI protection with Protonix. Oxygen as needed. Reevaluate in am.
[2018-08-02] MEDS: Calcium Carbonate/Vitamin D3 1250 MG-200 Unit Tab PO SCH (07:43)
[2018-08-02] MEDS: Apixaban 5 MG Tab PO SCH ×2 (07:43→19:58)
[2018-08-02] MEDS: Multivitamin Tab PO SCH (07:44)
[2018-08-02] MEDS: predniSONE 20 MG Tab PO SCH (07:44)
[2018-08-02] MEDS: Cholecalciferol (Vitamin D3) 1,000 Unit Tab PO SCH (07:45)
[2018-08-02] MEDS: Pantoprazole 40 MG Vial IVPUSH SCH (07:45)
[2018-08-02] MEDS: Metoprolol Succinate 25 MG Tab.ER PO SCH (07:50)
[2018-08-02 08:16] LABS: CHLORIDE,CL 107 mEq/L (98-106); SODIUM,NA 145 mEq/L (136-145)
--- NOTE | 2018-08-02 09:06 | PCM.PN ---
- General Info Date of Service: 08/02/18 Admission Dx/Problem (Free Text): Bilateral PE Subjective Update: Sol is a 78 year old male who was admitted to the hospital 07/31/2018 with bilateral PE. He presents to the ED with shortness of breath. He reports that he is starting to feel somewhat better. Feels like he is less short of breath with activity than day of admit. Reports he continues to have shortness of breath with exertion, but denies shortness of breath at rest. Has not had cough or fever. Nursing report he continues to desat with activity. Did attempt to wean his O2 and he got to 86% on RA when up to bathroom. Is maintaining O2 sat > 92% on 2.5 L O2. Nursing report last night patient had some bradycardia during night. Patient was asymptomatic. Pulse got as low as 45. Functional Status: Reports: Pain Controlled, Tolerating Diet, Ambulating, Urinating. Denies: New Symptoms - Review of Systems General: Reports: No Symptoms. Denies: Fever, Weakness, Malaise Pulmonary: Reports: Shortness of Breath (with exertion). Denies: Pleuritic Chest Pain, Cough, Sputum, Wheezing Cardiovascular: Reports: Dyspnea on Exertion. Denies: Chest Pain, Orthopnea, Edema, Lightheadedness Gastrointestinal: Reports: No Symptoms Genitourinary: Reports: No Symptoms Musculoskeletal: Reports: No Symptoms Skin: Reports: No Symptoms Neurological: Reports: No Symptoms Psychiatric: Reports: No Symptoms - Patient Data Vitals - Most Recent: Last Vital Signs Temp 97.5 F 08/02/18 07:25 Pulse 67 08/02/18 07:50 Resp 20 08/02/18 07:25 BP 131/73 08/02/18 07:50 Pulse Ox 93 L 08/02/18 07:25 Weight - Most Recent: 144 lb 3.2 oz Lab Results Last 24 Hours: Laboratory Results - last 24 hr 08/02/18 08/02/18 Range/Units 08:00 08:00 WBC 16.8 H (5.0-10.0) 10^3/uL RBC 4.91 (4.50-6.00) 10^6/uL Hgb 13.1 L (14.0-18.0) g/dL Hct 41.2 (40.0-54.0) % MCV 83.9 (82.0-94.0) fL MCH 26.7 L (27.0-32.0) pg MCHC 31.8 L (33.0-38.0) g/dL RDW Coeff of Laura 19.2 H (11.0-15.0) % Plt Count 108 L (150-400) 10^3/uL Neut % (Auto) 78.0 (35-85) % Lymph % (Auto) 13.5 (10-55) % [place] % (Auto) 7.6 (0-16) % Eos % (Auto) 0.7 (0-5) % Baso % (Auto) 0.2 (0-3) % Neut # (Auto) 13.10 H (1.80-7.00) 10^3/uL Lymph # (Auto) 2.26 (1.00-4.80) 10^3/uL [place] # (Auto) 1.28 H (0.00-0.80) 10^3/uL Eos # (Auto) 0.12 (0.00-0.45) 10^3/uL Baso # (Auto) 0.03 10^3/uL Sodium 145 (136-145) mEq/L Potassium 3.9 (3.5-5.0) mEq/L Chloride 107 H (98-106) mEq/L Carbon Dioxide 29 (21-32) mmol/L BUN 18 (7-18) mg/dL Creatinine 0.9 (0.7-1.3) mg/dL Est Cr Clr Drug Dosing 55.73 mL/min Estimated GFR (MDRD) > 60 (>=60) mL/min Glucose 110 H (75-99) mg/dL Calcium 8.5 (8.4-10.1) mg/dL C-Reactive Protein 4.1 H (0.2-0.8) mg/dL Med Orders - Current: Current Medications Acetaminophen (Tylenol) 650 mg PO Q4H PRN PRN Reason: Pain (Mild 1-3)/fever Apixaban (Eliquis) 10 mg PO BID [facility] Stop: 08/06/18 20:01 Last Admin: 08/02/18 07:43 Dose: 10 mg Calcium Carbonate (Calcium Carbonate/Vitamin D 1250 Mg-200 Unit) 1 tab PO DAILY [facility] Last Admin: 08/02/18 07:43 Dose: 1 tab Cholecalciferol (Vitamin D3) 2,000 units PO DAILY [facility] Last Admin: 08/02/18 07:45 Dose: 2,000 units Ferrous Sulfate (Ferrous Sulfate) 324 mg PO Q48H [facility] Last Admin: 08/01/18 09:21 Dose: 324 mg Magnesium Hydroxide (Milk Of Magnesia) 30 ml PO Q12H PRN PRN Reason: Constipation Metoprolol Succinate (Toprol Xl) 50 mg PO DAILY [facility] Last Admin: 08/02/18 07:50 Dose: 50 mg Multivitamins/Minerals/Vitamin C (Tab-A-Celso) 1 tab PO DAILY [facility] Last Admin: 08/02/18 07:44 Dose: 1 tab Ptom Alendronate Sodium [Fosamax] 1 Tab 1 tab PO Heath [facility] Ondansetron HCl (Zofran Odt) 4 mg PO Q4H PRN PRN Reason: nausea, able to take PO Ondansetron HCl (Zofran) 4 mg IV Q4H PRN PRN Reason: Nausea/Vomiting Pantoprazole Sodium (Protonix Iv) 40 mg IVPUSH 0800 [facility] Last Admin: 08/02/18 07:45 Dose: 40 mg Prednisone (Prednisone) 60 mg PO DAILY [facility] Last Admin: 08/02/18 07:44 Dose: 60 mg Simvastatin (Zocor) 40 mg PO Q48H [facility] Last Admin: 08/01/18 09:23 Dose: 40 mg Sodium Chloride (Saline Flush) 10 ml FLUSH ASDIRECTED PRN PRN Reason: Keep Vein Open Temazepam (Restoril) 15 mg PO BEDTIME PRN PRN Reason: Sleep Discontinued Medications Iopamidol (Isovue-370 (76%)) 100 ml IVPUSH ONETIME ONE Stop: 07/31/18 10:41 Last Admin: 07/31/18 11:20 Dose: 100 ml - Exam Quality Assessment: Supplemental Oxygen General: Alert, Oriented HEENT: Pupils Equal, Pupils Reactive, EOMI, Mucous Membr. Moist/[place] Neck: Supple Lungs: Clear to Auscultation, Normal Respiratory Effort, Decreased Breath Sounds (bases) Cardiovascular: Regular Rate, Regular Rhythm GI/Abdominal Exam: Normal Bowel Sounds, Soft, Non-Tender, No Organomegaly, No Distention, No Abnormal Bruit, No Mass, Pelvis Stable Extremities: Normal Inspection, Normal Range of Motion, Non-Tender, No Pedal Edema, Normal Capillary Refill Neurological: No New Focal Deficit Psy/Mental Status: Alert, Normal Affect, Normal Mood - Problem List & Annotations (1) Pulmonary emboli SNOMED Code(s): 04461860 Code(s): I26.99 - OTHER PULMONARY EMBOLISM WITHOUT ACUTE COR PULMONALE Status: Acute Priority: High Current Visit: Yes Qualifiers: Pulmonary embolism type: unspecified Chronicity: acute Acute cor pulmonale presence: without acute cor pulmonale Qualified Code(s): I26.99 - Other pulmonary embolism without acute cor pulmonale - Problem List Review Problem List Initiated/Reviewed/Updated: Yes - My Orders Last 24 Hours: My Active Orders 08/03/18 08:00 BMP [BASIC METABOLIC PANEL,BMP] [CHEM] DAILY C-REACTIVE PROTEIN [CHEM] DAILY CBC WITH AUTO DIFF [HEME] DAILY 08/04/18 08:00 BMP [BASIC METABOLIC PANEL,BMP] [CHEM] DAILY C-REACTIVE PROTEIN [CHEM] DAILY CBC WITH AUTO DIFF [HEME] DAILY - Assessment Assessment:: Bilateral Pulmonary Emboli - Plan Plan:: Labs all stable. Continue Eliquis and Protonix. Continue to wean O2 as able. Anticipate discharge 1-2 days pending O2 needs
[2018-08-03] MEDS: Apixaban 5 MG Tab PO SCH ×2 (07:30→19:31)
[2018-08-03] MEDS: Calcium Carbonate/Vitamin D3 1250 MG-200 Unit Tab PO SCH (07:30)
[2018-08-03] MEDS: Multivitamin Tab PO SCH (07:32)
[2018-08-03] MEDS: predniSONE 20 MG Tab PO SCH (07:32)
[2018-08-03] MEDS: Cholecalciferol (Vitamin D3) 1,000 Unit Tab PO SCH (07:33)
[2018-08-03] MEDS: Ferrous Sulfate 324 MG Tab.EC PO SCH (07:33)
[2018-08-03] MEDS: Simvastatin 40 MG Tab PO SCH (07:33)
[2018-08-03] MEDS: Pantoprazole 40 MG Vial IVPUSH SCH (07:35)
[2018-08-03] MEDS ORDERED: ALENDRONATE SODIUM PO SCH (12:00)
--- NOTE | 2018-08-03 14:11 | PCM.PN ---
- General Info Date of Service: 08/03/18 Admission Dx/Problem (Free Text): Bilateral PE Subjective Update: Sol is a 78 year old male who was admitted with bilateral PEs. He does feel like his shortness of breath is improving, but he does continue to desat into upper 80's on RA with any activity. Nursing staff report he also has labored breathing with activity. O2 has been weaned to 1.5 L and he is maintaining O2 sat > 92%. Does report occassional cough, but reports he has had this for years. No worse than normal. He denies any chest pain, shortness of breath at rest, swelling of legs, dizziness. Reports he does feel slightly short of breath with activity, but feels it has improved since admission. He did have BM yesterday and denies any dark or blood in stool. He does not have any complaints this morning. Nursing staff report pulse got to as low as 38 last evening. Patient is asymptomatic during these episodes of bradycardia. Functional Status: Reports: Pain Controlled, Tolerating Diet, Ambulating, Urinating. Denies: New Symptoms - Review of Systems General: Reports: No Symptoms. Denies: Fever, Weakness, Fatigue, Chills HEENT: Reports: No Symptoms Pulmonary: Reports: Shortness of Breath, Cough (chronic). Denies: Pleuritic Chest Pain, Sputum, Hemoptysis, Wheezing Cardiovascular: Reports: Dyspnea on Exertion. Denies: Chest Pain, Palpitations , Orthopnea, Edema, Lightheadedness Gastrointestinal: Reports: No Symptoms. Denies: Abdominal Pain, Constipation, Decreased Appetite, Diarrhea, Hematochezia, Melena, Nausea, Vomiting Genitourinary: Reports: No Symptoms Musculoskeletal: Reports: No Symptoms Skin: Reports: No Symptoms Neurological: Reports: No Symptoms Psychiatric: Reports: No Symptoms - Patient Data Vitals - Most Recent: Last Vital Signs Temp 97.4 F 08/03/18 12:00 Pulse 75 08/03/18 12:00 Resp 22 H 08/03/18 12:00 BP 150/84 H 08/03/18 12:00 Pulse Ox 94 L 08/03/18 12:00 Weight - Most Recent: 144 lb 3.2 oz Med Orders - Current: Current Medications Acetaminophen (Tylenol) 650 mg PO Q4H PRN PRN Reason: Pain (Mild 1-3)/fever Apixaban (Eliquis) 10 mg PO BID [facility] Stop: 08/06/18 20:01 Last Admin: 08/03/18 07:30 Dose: 10 mg Calcium Carbonate (Calcium Carbonate/Vitamin D 1250 Mg-200 Unit) 1 tab PO DAILY [facility] Last Admin: 08/03/18 07:30 Dose: 1 tab Cholecalciferol (Vitamin D3) 2,000 units PO DAILY [facility] Last Admin: 08/03/18 07:33 Dose: 2,000 units Ferrous Sulfate (Ferrous Sulfate) 324 mg PO Q48H [facility] Last Admin: 08/03/18 07:33 Dose: 324 mg Losartan Potassium (Cozaar) 50 mg PO DAILY [facility] Magnesium Hydroxide (Milk Of Magnesia) 30 ml PO Q12H PRN PRN Reason: Constipation Metoprolol Succinate (Toprol Xl) 25 mg PO DAILY [facility] Multivitamins/Minerals/Vitamin C (Tab-A-Celso) 1 tab PO DAILY [facility] Last Admin: 08/03/18 07:32 Dose: 1 tab Ptom Alendronate Sodium [Fosamax] 1 Tab 1 tab PO Heath [facility] Ondansetron HCl (Zofran Odt) 4 mg PO Q4H PRN PRN Reason: nausea, able to take PO Ondansetron HCl (Zofran) 4 mg IV Q4H PRN PRN Reason: Nausea/Vomiting Pantoprazole Sodium (Protonix Iv) 40 mg IVPUSH 0800 [facility] Last Admin: 08/03/18 07:35 Dose: 40 mg Prednisone (Prednisone) 60 mg PO DAILY [facility] Last Admin: 08/03/18 07:32 Dose: 60 mg Simvastatin (Zocor) 40 mg PO Q48H [facility] Last Admin: 08/03/18 07:33 Dose: 40 mg Sodium Chloride (Saline Flush) 10 ml FLUSH ASDIRECTED PRN PRN Reason: Keep Vein Open Temazepam (Restoril) 15 mg PO BEDTIME PRN PRN Reason: Sleep Discontinued Medications Iopamidol (Isovue-370 (76%)) 100 ml IVPUSH ONETIME ONE Stop: 07/31/18 10:41 Last Admin: 07/31/18 11:20 Dose: 100 ml Metoprolol Succinate (Toprol Xl) 50 mg PO DAILY [facility] Last Admin: 08/02/18 07:50 Dose: 50 mg - Exam Quality Assessment: Supplemental Oxygen (1.5 L via NC) General: Alert, Oriented, No Acute Distress Neck: Supple Lungs: Clear to Auscultation, Normal Respiratory Effort, Decreased Breath Sounds Cardiovascular: Regular Rate, Regular Rhythm GI/Abdominal Exam: Normal Bowel Sounds, Soft, Non-Tender, No Organomegaly, No Distention, No Abnormal Bruit, No Mass, Pelvis Stable Back Exam: Normal Inspection, Full Range of Motion Extremities: Normal Inspection, Normal Range of Motion, Non-Tender, No Pedal Edema, Normal Capillary Refill Neurological: No New Focal Deficit Psy/Mental Status: Alert, Normal Affect, Normal Mood - Problem List & Annotations (1) Pulmonary emboli SNOMED Code(s): 52219100 Code(s): I26.99 - OTHER PULMONARY EMBOLISM WITHOUT ACUTE COR PULMONALE Status: Acute Priority: High Current Visit: Yes Qualifiers: Pulmonary embolism type: unspecified Chronicity: acute Acute cor pulmonale presence: without acute cor pulmonale Qualified Code(s): I26.99 - Other pulmonary embolism without acute cor pulmonale (2) Hypertension SNOMED Code(s): 36609166 Code(s): I10 - ESSENTIAL (PRIMARY) HYPERTENSION Status: Acute Current Visit: Yes Qualifiers: Hypertension type: essential hypertension Qualified Code(s): I10 - Essential (primary) hypertension - Problem List Review Problem List Initiated/Reviewed/Updated: No - My Orders Last 24 Hours: My Active Orders 08/03/18 14:00 Losartan [Cozaar] 50 mg PO DAILY 08/04/18 08:00 Metoprolol Succinate [Toprol XL] 25 mg PO DAILY - Assessment Assessment:: Bilateral Pulmonary Emboli Hypertension - Plan Plan:: Continue Eliquis and Protonix. Continue to wean O2 as able. BP has been mildly elevated in addition to bradycardia at night. We will decrease metoprolol dose to 25 mg daily. Add losartan 50 mg daily. Will continue to monitor telemetry and BP. Anticipate discharge 1-2 days pending O2 needs.
[2018-08-03] MEDS: Losartan 25 MG Tab PO SCH (14:46)
[2018-08-03] MEDS: Metoprolol Succinate 25 MG Tab.ER PO SCH ×2 (14:47→14:48)
[2018-08-04 07:35] VITALS: BP 139/79
[2018-08-04] MEDS: Apixaban 5 MG Tab PO SCH (07:36)
[2018-08-04] MEDS: Cholecalciferol (Vitamin D3) 1,000 Unit Tab PO SCH (07:36)
[2018-08-04] MEDS: Pantoprazole 40 MG Vial IVPUSH SCH (07:36)
[2018-08-04] MEDS: Losartan 25 MG Tab PO SCH (07:37)
[2018-08-04] MEDS: Metoprolol Succinate 25 MG Tab.ER PO SCH (07:37)
[2018-08-04] MEDS: Multivitamin Tab PO SCH (07:38)
[2018-08-04] MEDS: Calcium Carbonate/Vitamin D3 1250 MG-200 Unit Tab PO SCH (07:38)
[2018-08-04] MEDS: predniSONE 20 MG Tab PO SCH (07:38)
[2018-08-04] MEDS ORDERED: Metoprolol Succinate 25 MG Tab.ER PO SCH (08:00)
--- NOTE | 2018-08-05 17:45 | PCM.DCSUM1 ---
Discharge Summary - Hospital Course Free Text/Narrative:: Patient presented to ER with complaints of shortness of breath. States had gotten up to the bathroom and felt short of breath and found it "hard to get his wind back'. By the time EMS had arrived on the scene, patient had felt better but his sats were in the 80s. Did respond well to oxygen at 2 liters and oxygen sats were in the high 90s. He denied any recent edema in his legs. No history of a blood clot. Had been in the hospital in [place] several months ago and was diagnosed with lupus. He is currently on prednisone 60 mg daily as a result. He does admit he had been on Coumadin in the past but was unsure why , per records was for a TIA. Was switched to Eliquis because of not wanting to have his blood drawn every month. His Eliquis was stopped back in March due to blood in his stools. Diagnosis: Stroke: No Modified Mraía Scale: No Symptoms at All Modified [place] Scale Score: 0 - Discharge Data Discharge Date: 08/04/18 Discharge Disposition: Home, Self-Care 01 Condition: Good - Discharge Diagnosis/Problem(s) (1) Pulmonary emboli SNOMED Code(s): 36192681 ICD Code: I26.99 - OTHER PULMONARY EMBOLISM WITHOUT ACUTE COR PULMONALE Status: Acute Priority: High Qualifiers: Pulmonary embolism type: unspecified Chronicity: acute Acute cor pulmonale presence: without acute cor pulmonale Qualified Code(s): I26.99 - Other pulmonary embolism without acute cor pulmonale - Patient Summary/Data Complications: none Hospital Course: Patient has overall done well during admission. For the first 3 days however, did still drop his sats with activity even while on 2 liters of oxygen. In the last 24 hours, patient was weaned off his oxygen and maintains a sat around 90% . He denies any further shortness of breath. Has been on Eliquis BID during stay, did note bright red blood in small amount in stool this am. Color of BM remains brown. Did discuss with Dr. Chacon due to need for medication due to PE. Advised to watch stools closely over the next few days and if bleeding continues or worsens, will need to likely have a IVC filter placed. Will follow up with Susana later this week for reevaluation of this. Was covered with IV PRotonix for GI protection and will be sent home on same. Losartan was started over the weekend as patient's blood pressures were elevated. Blood pressure today in good control. - Patient Instructions Diet: Usual Diet as Tolerated Activity: As Tolerated - Discharge Plan *PRESCRIPTION DRUG MONITORING PROGRAM REVIEWED*: No *COPY OF PRESCRIPTION DRUG MONITORING REPORT IN PATIENT ADILIA: No Prescriptions/Med Rec: Apixaban [Eliquis] 10 mg PO BID #66 tablet Losartan [Cozaar] 50 mg PO DAILY #30 tab Metoprolol Succinate [Toprol XL] 25 mg PO DAILY #30 tab.er Pantoprazole Sodium [Protonix] 40 mg PO DAILY #30 tablet. Home Medications: Home Meds Rosuvastatin Calcium [Crestor] 20 mg PO Q48H 05/09/14 [History] Calcium Carb/Magnesium Oxid/D3 [Calcium Magnesium + D] 1 tab PO DAILY 08/07/17 [ History] Cholecalciferol (Vitamin D3) [Vitamin D3] 2,000 unit PO DAILY 08/07/17 [History] Multivitamin [Multi-Day Vitamins] 1 tab PO DAILY 08/07/17 [History] Alendronate Sodium [Fosamax] 1 tab PO WEEKLY 07/31/18 [History] Ferrous Sulfate [Iron] 1 tab PO Q48H 07/31/18 [History] Sulfamethoxazole/Trimethoprim [Sulfamethoxazole-Tmp Ds Tablet] 1 tab PO ASDIRECTED 07/31/18 [History] predniSONE [Prednisone] 60 mg PO DAILY 07/31/18 [History] Apixaban [Eliquis] 10 mg PO BID #66 tablet 08/04/18 [Rx] Losartan [Cozaar] 50 mg PO DAILY #30 tab 08/04/18 [Rx] Metoprolol Succinate [Toprol XL] 25 mg PO DAILY #30 tab.er 08/04/18 [Rx] Pantoprazole Sodium [Protonix] 40 mg PO DAILY #30 tablet. 08/04/18 [Rx] Patient Handouts: Pulmonary Embolism Forms: ED Department Discharge Referrals: Susana Meehan CANARY BREEDER [ED Midlevel Provider] - (Follow up with Susana in 10 days ) - Discharge Summary/Plan Comment DC Time >30 min.: No - General Info Date of Service: 08/04/18 Admission Dx/Problem (Free Text: Bilateral PE Functional Status: Reports: Pain Controlled, Tolerating Diet, Ambulating - Review of Systems General: Denies: Weakness, Fatigue HEENT: Reports: No Symptoms Pulmonary: Denies: Shortness of Breath, Pleuritic Chest Pain Cardiovascular: Denies: Chest Pain, Edema, Lightheadedness Genitourinary: Reports: No Symptoms Musculoskeletal: Reports: No Symptoms Skin: Reports: No Symptoms - Patient Data Vitals - Most Recent: Last Vital Signs Temp 97.6 F 08/04/18 07:34 Pulse 70 08/04/18 07:37 Resp 18 08/04/18 07:34 BP 139/79 08/04/18 07:37 Pulse Ox 94 L 08/04/18 07:34 Weight - Most Recent: 144 lb 3.2 oz Med Orders - Current: Current Medications Discontinued Medications Acetaminophen (Tylenol) 650 mg PO Q4H PRN PRN Reason: Pain (Mild 1-3)/fever Apixaban (Eliquis) 10 mg PO BID [facility] Stop: 08/06/18 20:01 Last Admin: 08/04/18 07:36 Dose: 10 mg Calcium Carbonate (Calcium Carbonate/Vitamin D 1250 Mg-200 Unit) 1 tab PO DAILY [facility] Last Admin: 08/04/18 07:38 Dose: 1 tab Cholecalciferol (Vitamin D3) 2,000 units PO DAILY [facility] Last Admin: 08/04/18 07:36 Dose: 2,000 units Ferrous Sulfate (Ferrous Sulfate) 324 mg PO Q48H [facility] Last Admin: 08/03/18 07:33 Dose: 324 mg Iopamidol (Isovue-370 (76%)) 100 ml IVPUSH ONETIME ONE Stop: 07/31/18 10:41 Last Admin: 07/31/18 11:20 Dose: 100 ml Losartan Potassium (Cozaar) 50 mg PO DAILY [facility] Last Admin: 08/04/18 07:37 Dose: 50 mg Magnesium Hydroxide (Milk Of Magnesia) 30 ml PO Q12H PRN PRN Reason: Constipation Metoprolol Succinate (Toprol Xl) 50 mg PO DAILY [facility] Last Admin: 08/03/18 14:47 Dose: Not Given Metoprolol Succinate (Toprol Xl) 25 mg PO DAILY [facility] Metoprolol Succinate (Toprol Xl) 25 mg PO DAILY [facility] Last Admin: 08/04/18 07:37 Dose: 25 mg Multivitamins/Minerals/Vitamin C (Tab-A-Celso) 1 tab PO DAILY [facility] Last Admin: 08/04/18 07:38 Dose: 1 tab Ptom Alendronate Sodium [Fosamax] 1 Tab 1 tab PO Heath [facility] Ondansetron HCl (Zofran Odt) 4 mg PO Q4H PRN PRN Reason: nausea, able to take PO Ondansetron HCl (Zofran) 4 mg IV Q4H PRN PRN Reason: Nausea/Vomiting Pantoprazole Sodium (Protonix Iv) 40 mg IVPUSH 0800 [facility] Last Admin: 08/04/18 07:36 Dose: 40 mg Prednisone (Prednisone) 60 mg PO DAILY [facility] Last Admin: 08/04/18 07:38 Dose: 60 mg Simvastatin (Zocor) 40 mg PO Q48H [facility] Last Admin: 08/03/18 07:33 Dose: 40 mg Sodium Chloride (Saline Flush) 10 ml FLUSH ASDIRECTED PRN PRN Reason: Keep Vein Open Temazepam (Restoril) 15 mg PO BEDTIME PRN PRN Reason: Sleep - Exam General: Reports: Alert, Oriented HEENT: Reports: Mucous Membr. Moist/[place]ck: Reports: Supple Lungs: Reports: Clear to Auscultation, Normal Respiratory Effort Cardiovascular: Reports: Regular Rate, Regular Rhythm GI/Abdominal Exam: Normal Bowel Sounds, Soft, Non-Tender Extremities: Normal Inspection, No Pedal Edema Skin: Reports: Warm, Dry Neurological: Reports: No New Focal Deficit
== END 2018-08-04 09:55 | disposition home or self-care (01) | DRG 176 ==
LOC: CC.ED 08:18 → CC.MS 12:43 → UNDOADMIN 12:43 → CC.MS 14:23
PROVIDERS: ADMIT Physician Assistant Medical; ATTEND Family Medicine
DX: I26.99 Other pulmonary embolism without acute cor pulmonale (principal); K92.1 Melena; I27.20 Pulmonary hypertension, unspecified; I10 Essential (primary) hypertension; M32.9 Systemic lupus erythematosus, unspecified; D72.829 Elevated white blood cell count, unspecified; T38.0X5A Adverse effect of glucocorticoids and synthetic analogues, initial encounter; I25.2 Old myocardial infarction; Z79.52 Long term (current) use of systemic steroids; Z85.46 Personal history of malignant neoplasm of prostate; Z95.5 Presence of coronary angioplasty implant and graft; Z88.8 Allergy status to other drugs, medicaments and biological substances; Z79.899 Other long term (current) drug therapy; Z90.49 Acquired absence of other specified parts of digestive tract; Z90.79 Acquired absence of other genital organ(s); M54.9 Dorsalgia, unspecified; R79.1 Abnormal coagulation profile; R53.1 Weakness; R06.02 Shortness of breath; Z87.891 Personal history of nicotine dependence; Z95.1 Presence of aortocoronary bypass graft; Z86.73 Personal history of transient ischemic attack (TIA), and cerebral infarction without residual deficits
CPT/HCPCS: 36415; 71046; 71275; 80048; 80053; 82550; 83615; 83880; 84484; 85025; 85379; 85610; 85730; 86140; 93005; 99285; A9270-GY; C9113; Q9967

== ENCOUNTER 2018-10-01 08:50 | Inpatient (IN) | payer MEDICARE, BC ==
[2018-10-01] MEDS ORDERED: Acetaminophen 325 MG Tab PO PRN (10:37)
[2018-10-01] MEDS ORDERED: Sodium Chloride 0.9% 1,000 ML IV SCH (10:45)
[2018-10-01] MEDS: Iopamidol 612 MG/ML 100 ML Bottle IVPUSH ONE ×3 (11:27→13:25)
[2018-10-01] MEDS ORDERED: Levofloxacin/Dextrose 5%-Water 500 MG in Premix Bag 1 BAG IV ONE (11:30)
[2018-10-01] MEDS ORDERED: Acyclovir 500 MG in Sodium Chloride 0.9% 100 ML IV SCH ×5 (13:00→14:00)
[2018-10-01] MEDS: Acyclovir 500 MG in Sodium Chloride 0.9% 100 ML IV SCH ×2 (14:31→19:39)
[2018-10-01] MEDS: methylPREDNISolone Sodium Succinate 125 MG/2 ML SDV IVPUSH SCH (15:48)
[2018-10-02 07:30] LABS: CHLORIDE,CL 104 mEq/L (98-106); SODIUM,NA 141 mEq/L (136-145)
[2018-10-02] MEDS: Metoprolol Succinate 25 MG Tab.ER PO SCH (07:55)
[2018-10-02] MEDS: Pantoprazole 40 MG Vial IVPUSH SCH (07:56)
[2018-10-02] MEDS: cefTRIAXone 1 GM Vial IVPUSH SCH (07:56)
[2018-10-02] MEDS: Losartan 25 MG Tab PO SCH (07:56)
[2018-10-02] MEDS: predniSONE 5 MG Tab PO SCH (07:56)
[2018-10-02] MEDS: methylPREDNISolone Sodium Succinate 125 MG/2 ML SDV IVPUSH SCH (07:56)
[2018-10-02] MEDS: Gabapentin 100 MG Cap PO SCH ×3 (10:14→20:05)
[2018-10-02] MEDS: Acyclovir 500 MG in Sodium Chloride 0.9% 100 ML IV SCH ×2 (10:14→20:04)
[2018-10-02] MEDS ORDERED: Warfarin 5 MG Tab PO SCH (12:00)
[2018-10-02] MEDS ORDERED: Levofloxacin/Dextrose 5%-Water 50 ML IV SCH (12:30)
--- NOTE | 2018-10-02 20:31 | PCM.PN ---
- General Info Date of Service: 10/02/18 Admission Dx/Problem (Free Text): Herpes Zoster Cellulitis Functional Status: Reports: Pain Controlled, Tolerating Diet, Ambulating - Review of Systems General: Denies: Fever, Weakness, Fatigue HEENT: Reports: Ear Pain (Has tenderness to the outer ear). Denies: Sinus Congestion, Sore Throat, Rhinitis Pulmonary: Denies: Shortness of Breath, Cough Cardiovascular: Denies: Chest Pain, Edema, Lightheadedness Gastrointestinal: Denies: Abdominal Pain, Nausea, Vomiting Genitourinary: Reports: No Symptoms Musculoskeletal: Reports: No Symptoms Skin: Reports: Other (redness, warmth and swelling to right ear/neck) Neurological: Reports: Tingling (discomfort around right ear) Psychiatric: Reports: No Symptoms - Patient Data Vitals - Most Recent: Last Vital Signs Temp 96.9 F 10/02/18 20:00 Pulse 82 10/02/18 20:00 Resp 18 10/02/18 20:00 BP 142/82 H 10/02/18 20:00 Pulse Ox 97 10/02/18 20:00 Weight - Most Recent: 146 lb 6.191 oz Lab Results Last 24 Hours: Laboratory Results - last 24 hr 10/02/18 10/02/18 10/02/18 Range/Units 06:55 06:55 06:55 WBC 11.7 H (5.0-10.0) 10^3/uL RBC 4.98 (4.50-6.00) 10^6/uL Hgb 14.1 (14.0-18.0) g/dL Hct 42.9 (40.0-54.0) % MCV 86.1 (82.0-94.0) fL MCH 28.3 (27.0-32.0) pg MCHC 32.9 L (33.0-38.0) g/dL RDW Coeff of Laura 17.2 H (11.0-15.0) % Plt Count 160 (150-400) 10^3/uL Neut % (Auto) 79.1 (35-85) % Lymph % (Auto) 9.0 L (10-55) % Finney % (Auto) 11.7 (0-16) % Eos % (Auto) 0 (0-5) % Baso % (Auto) 0.2 (0-3) % Neut # (Auto) 9.27 H (1.80-7.00) 10^3/uL Lymph # (Auto) 1.05 (1.00-4.80) 10^3/uL Finney # (Auto) 1.37 H (0.00-0.80) 10^3/uL Eos # (Auto) 0.00 (0.00-0.45) 10^3/uL Baso # (Auto) 0.02 10^3/uL PT 21.1 H (9.7-12.3) SEC INR 2.14 H (0.92-1.18) Sodium 141 (136-145) mEq/L Potassium 4.4 (3.5-5.0) mEq/L Chloride 104 (98-106) mEq/L Carbon Dioxide 28 (21-32) mmol/L BUN 17 (7-18) mg/dL Creatinine 1.1 (0.7-1.3) mg/dL Est Cr Clr Drug Dosing 45.60 mL/min Estimated GFR (MDRD) > 60 (>=60) mL/min Glucose 125 H (75-99) mg/dL Calcium 8.8 (8.4-10.1) mg/dL C-Reactive Protein 2.7 H (0.2-0.8) mg/dL Med Orders - Current: Current Medications Acetaminophen (Tylenol) 650 mg PO Q4H PRN PRN Reason: Pain (Mild 1-3)/fever Last Admin: 10/01/18 19:50 Dose: 650 mg Ceftriaxone Sodium (Rocephin) 1 gm IVPUSH Q24H [facility] Last Admin: 10/02/18 07:56 Dose: 1 gm Gabapentin (Neurontin) 100 mg PO TID [facility] Last Admin: 10/02/18 20:05 Dose: 100 mg Acyclovir 500 mg/ Sodium (Chloride) 110 mls @ 110 mls/hr IV BID [facility] Last Admin: 10/02/18 20:04 Dose: 110 mls/hr Losartan Potassium (Cozaar) 50 mg PO DAILY [facility] Last Admin: 10/02/18 07:56 Dose: 50 mg Methylprednisolone Sodium Succinate (Solu-Medrol) 62.5 mg IVPUSH DAILY [facility] Last Admin: 10/02/18 07:56 Dose: 62.5 mg Metoprolol Succinate (Toprol Xl) 25 mg PO DAILY [facility] Last Admin: 10/02/18 07:55 Dose: 25 mg Pantoprazole Sodium (Protonix Iv) 40 mg IVPUSH Q24H [facility] Last Admin: 10/02/18 07:56 Dose: 40 mg Prednisone (Prednisone) 15 mg PO DAILY [facility] Last Admin: 10/02/18 07:56 Dose: 15 mg Warfarin Sodium (Coumadin) 5 mg PO [id number]@1200 [facility] Last Admin: 10/02/18 12:27 Dose: 5 mg Warfarin Sodium (Coumadin) 2.5 mg PO [id number]@1200 [facility] Discontinued Medications Sodium Chloride (Normal Saline) 1,000 mls @ 75 mls/hr IV ASDIRECTED [facility] Last Admin: 10/01/18 12:10 Dose: 75 mls/hr Levofloxacin/Dextrose 500 mg/ (Premix) 100 mls @ 100 mls/hr IV ONETIME ONE Stop: 10/01/18 12:29 Last Admin: 10/01/18 12:10 Dose: 100 mls/hr Levofloxacin/Dextrose (Levaquin In D5w 250 Mg/50 Ml) 50 mls @ 50 mls/hr IV Q24H [facility] Acyclovir 500 mg/ Sodium (Chloride) 110 mls @ 110 mls/hr IV Q8H [facility] Last Admin: 10/01/18 14:32 Dose: Not Given Acyclovir 500 mg/ Sodium (Chloride) 110 mls @ 110 mls/hr IV Q8H [facility] Acyclovir 500 mg/ Sodium (Chloride) 110 mls @ 110 mls/hr IV Q12H [facility] Iopamidol (Isovue-300 (61%)) 100 ml IVPUSH ONETIME ONE Stop: 10/01/18 11:28 Last Admin: 10/01/18 13:25 Dose: 100 ml - Exam General: Alert, Oriented HEENT: Other (patient has vesicular lesions to right shoulder, neck, ear and cheek. Is tender to palpation. ) Neck: Supple Lungs: Clear to Auscultation, Normal Respiratory Effort Cardiovascular: Regular Rate, Regular Rhythm GI/Abdominal Exam: Normal Bowel Sounds, Soft, Non-Tender Skin: Other (vesicular lesions, many dry and scabbed now) Wound/Incisions: No Drainage, Erythema Neurological: No New Focal Deficit - Problem List & Annotations (1) Herpes zoster SNOMED Code(s): 3356691 Code(s): B02.9 - ZOSTER WITHOUT COMPLICATIONS Status: Acute Priority: High Current Visit: Yes Qualifiers: Herpes zoster complications: without complications Qualified Code(s): B02.9 - Zoster without complications (2) Cellulitis SNOMED Code(s): 391978744 Code(s): L03.90 - CELLULITIS, UNSPECIFIED Status: Acute Priority: High Current Visit: Yes Qualifiers: Site of cellulitis: head Qualified Code(s): L03.811 - Cellulitis of head [ any part, except face] - Problem List Review Problem List Initiated/Reviewed/Updated: Yes - My Orders Last 24 Hours: My Active Orders 10/02/18 08:47 Gabapentin [Neurontin] 100 mg PO TID - Assessment Assessment:: Cellulitis of neck Herpes Zoster - Plan Plan:: Patient is doing well today. States has mild discomfort to the right ear/neck region, especially with palpation or rubs on linen. Afebrile. WBC elevated today at 11.7, CRP 2.7. Electrolytes normal. Has vesicular lesions to right shoulder, neck, and around right ear. Is tender. Will continue with IV Cleocin. Start Gabapentin due to discomfort. Reevaluate labs in am.
[2018-10-03 07:36] LABS: CHLORIDE,CL 108 mEq/L (98-106); SODIUM,NA 143 mEq/L (136-145)
[2018-10-03] MEDS: Pantoprazole 40 MG Vial IVPUSH SCH (08:41)
[2018-10-03] MEDS: Metoprolol Succinate 25 MG Tab.ER PO SCH (08:41)
[2018-10-03] MEDS: cefTRIAXone 1 GM Vial IVPUSH SCH (08:41)
[2018-10-03] MEDS: methylPREDNISolone Sodium Succinate 125 MG/2 ML SDV IVPUSH SCH (08:41)
[2018-10-03] MEDS: Gabapentin 100 MG Cap PO SCH (08:42)
[2018-10-03] MEDS: Losartan 25 MG Tab PO SCH (08:42)
[2018-10-03] MEDS: predniSONE 5 MG Tab PO SCH (08:42)
[2018-10-03] MEDS: Acyclovir 500 MG in Sodium Chloride 0.9% 100 ML IV SCH (08:43)
[2018-10-03] MEDS ORDERED: Warfarin 2.5 MG Tab PO SCH (12:00)
[2018-10-03 12:26] VITALS: BP 145/85
--- NOTE | 2018-10-04 16:32 | PCM.DCSUM1 ---
Discharge Summary - Hospital Course Free Text/Narrative:: Patient presented to clinic to see Susana for an INR check and reported "bumps on his right ear and cheek". Had initially noted a lump in this area and had progressively gotten worse and more swollen. Had low grade fever in the clinic. Noted redness, swelling and vesicular lesions to the right ear, right cheek and shoulder. CT scan of his head and neck was done that was concerning for cellulitis. No abscess. Admitted and started on IV Levaquin, steroids and Acyclovir for coverage. Diagnosis: Stroke: No Modified María Scale: No Symptoms at All Modified María Scale Score: 0 - Discharge Data Discharge Date: 10/03/18 Discharge Disposition: Home, Self-Care 01 Condition: Good - Discharge Diagnosis/Problem(s) (1) Herpes zoster SNOMED Code(s): 5280400 ICD Code: B02.9 - ZOSTER WITHOUT COMPLICATIONS Status: Acute Priority: High Qualifiers: Herpes zoster complications: without complications Qualified Code(s): B02.9 - Zoster without complications (2) Cellulitis SNOMED Code(s): 475756738 ICD Code: L03.90 - CELLULITIS, UNSPECIFIED Status: Acute Priority: High Qualifiers: Site of cellulitis: head Qualified Code(s): L03.811 - Cellulitis of head [ any part, except face] - Patient Summary/Data Complications: none Hospital Course: Patient doing well. Has been afebrile. rover tender with palpation to right ear. Lesions are dry, consistent with herpes zoster. Moderate redness and swelling yet noted. Denies shortness of breath. Does have low grade pain yet to left rib area from previous PE, no worse or better than admit. WBC on admit was 9.8, did increase to 14.5, likely related to steroids. CRP did improve from 2.5 to 1.5. INR is 2.81 so coumadin dose was adjusted due to antibiotic use. Patient is eating well. Tolerating Gabapentin for discomfort. Will discharge home on Levaquin and Valtrex. Gabapentin for discomfort. Follow up with Susana in one week, INR prior to visit. - Patient Instructions Diet: Usual Diet as Tolerated Activity: As Tolerated - Discharge Plan *PRESCRIPTION DRUG MONITORING PROGRAM REVIEWED*: No *COPY OF PRESCRIPTION DRUG MONITORING REPORT IN PATIENT ADILIA: No Prescriptions/Med Rec: Gabapentin [Neurontin] 100 mg PO TID #30 capsule Levofloxacin [Levaquin] 500 mg PO DAILY #5 tablet valACYclovir [Valtrex] 1,000 mg PO BID #10 tablet Warfarin [Coumadin] 2.5 mg PO SuMoWeFr@1200 #30 tablet Warfarin [Coumadin] 5 mg PO TuThSa@1200 #30 tablet Home Medications: Home Meds Rosuvastatin Calcium [Crestor] 20 mg PO Q48H 05/09/14 [History] Calcium Carb/Magnesium Oxid/D3 [Calcium Magnesium + D] 1 tab PO DAILY 08/07/17 [ History] Cholecalciferol (Vitamin D3) [Vitamin D3] 2,000 unit PO DAILY 08/07/17 [History] Multivitamin [Multi-Day Vitamins] 1 tab PO DAILY 08/07/17 [History] Alendronate Sodium [Fosamax] 1 tab PO WEEKLY 07/31/18 [History] Ferrous Sulfate [Iron] 1 tab PO Q48H 07/31/18 [History] Sulfamethoxazole/Trimethoprim [Sulfamethoxazole-Tmp Ds Tablet] 1 tab PO ASDIRECTED 07/31/18 [History] predniSONE [Prednisone] 15 mg PO DAILY 07/31/18 [History] Losartan [Cozaar] 50 mg PO DAILY #30 tab 08/04/18 [Rx] Metoprolol Succinate [Toprol XL] 25 mg PO DAILY #30 tab.er 08/04/18 [Rx] Pantoprazole Sodium [Protonix] 40 mg PO DAILY #30 tablet. 08/04/18 [Rx] Gabapentin [Neurontin] 100 mg PO TID #30 capsule 10/03/18 [Rx] Levofloxacin [Levaquin] 500 mg PO DAILY #5 tablet 10/03/18 [Rx] Warfarin [Coumadin] 2.5 mg PO SuMoWeFr@1200 #30 tablet 10/03/18 [Rx] Warfarin [Coumadin] 5 mg PO TuThSa@1200 #30 tablet 10/03/18 [Rx] valACYclovir [Valtrex] 1,000 mg PO BID #10 tablet 10/03/18 [Rx] Patient Handouts: Shingles - Discharge Summary/Plan Comment DC Time >30 min.: No - General Info Date of Service: 10/03/18 Admission Dx/Problem (Free Text: Herpes Zoster Cellulitis Functional Status: Reports: Pain Controlled, Tolerating Diet, Ambulating - Review of Systems General: Denies: Fever, Weakness, Fatigue HEENT: Reports: Ear Pain. Denies: Sinus Congestion Pulmonary: Reports: Pleuritic Chest Pain. Denies: Shortness of Breath, Cough Cardiovascular: Denies: Chest Pain, Edema, Lightheadedness Gastrointestinal: Denies: Abdominal Pain, Nausea, Vomiting Genitourinary: Reports: No Symptoms Musculoskeletal: Reports: No Symptoms Skin: Reports: Rash (right ear, cheek and neck) Neurological: Reports: No Symptoms - Patient Data Vitals - Most Recent: Last Vital Signs Temp 96.8 F 10/03/18 08:00 Pulse 67 10/03/18 08:41 Resp 16 10/03/18 08:00 BP 147/85 H 10/03/18 08:42 Pulse Ox 99 10/03/18 08:00 Weight - Most Recent: 146 lb 6.191 oz Med Orders - Current: Current Medications Discontinued Medications Acetaminophen (Tylenol) 650 mg PO Q4H PRN PRN Reason: Pain (Mild 1-3)/fever Last Admin: 10/01/18 19:50 Dose: 650 mg Ceftriaxone Sodium (Rocephin) 1 gm IVPUSH Q24H [facility] Last Admin: 10/03/18 08:41 Dose: 1 gm Gabapentin (Neurontin) 100 mg PO TID [facility] Last Admin: 10/03/18 08:42 Dose: 100 mg Sodium Chloride (Normal Saline) 1,000 mls @ 75 mls/hr IV ASDIRECTED [facility] Last Admin: 10/01/18 12:10 Dose: 75 mls/hr Levofloxacin/Dextrose 500 mg/ (Premix) 100 mls @ 100 mls/hr IV ONETIME ONE Stop: 10/01/18 12:29 Last Admin: 10/01/18 12:10 Dose: 100 mls/hr Levofloxacin/Dextrose (Levaquin In D5w 250 Mg/50 Ml) 50 mls @ 50 mls/hr IV Q24H [facility] Acyclovir 500 mg/ Sodium (Chloride) 110 mls @ 110 mls/hr IV Q8H [facility] Last Admin: 10/01/18 14:32 Dose: Not Given Acyclovir 500 mg/ Sodium (Chloride) 110 mls @ 110 mls/hr IV Q8H [facility] Acyclovir 500 mg/ Sodium (Chloride) 110 mls @ 110 mls/hr IV Q12H [facility] Acyclovir 500 mg/ Sodium (Chloride) 110 mls @ 110 mls/hr IV BID [facility] Last Admin: 10/03/18 08:43 Dose: 110 mls/hr Iopamidol (Isovue-300 (61%)) 100 ml IVPUSH ONETIME ONE Stop: 10/01/18 11:28 Last Admin: 10/01/18 13:25 Dose: 100 ml Losartan Potassium (Cozaar) 50 mg PO DAILY [facility] Last Admin: 10/03/18 08:42 Dose: 50 mg Methylprednisolone Sodium Succinate (Solu-Medrol) 62.5 mg IVPUSH DAILY [facility] Last Admin: 10/03/18 08:41 Dose: 62.5 mg Metoprolol Succinate (Toprol Xl) 25 mg PO DAILY [facility] Last Admin: 10/03/18 08:41 Dose: 25 mg Pantoprazole Sodium (Protonix Iv) 40 mg IVPUSH Q24H [facility] Last Admin: 10/03/18 08:41 Dose: 40 mg Prednisone (Prednisone) 15 mg PO DAILY [facility] Last Admin: 10/03/18 08:42 Dose: 15 mg Warfarin Sodium (Coumadin) 5 mg PO TuThSa@1200 [facility] Last Admin: 10/02/18 12:27 Dose: 5 mg Warfarin Sodium (Coumadin) 2.5 mg PO SuMoWeFr@1200 [facility] - Exam General: Reports: Alert, Oriented HEENT: Reports: Mucous Membr. Moist/[place] Neck: Reports: Supple Lungs: Reports: Clear to Auscultation, Normal Respiratory Effort Cardiovascular: Reports: Regular Rate, Regular Rhythm GI/Abdominal Exam: Normal Bowel Sounds, Soft, Non-Tender Extremities: Normal Inspection, No Pedal Edema Wound/Incisions: Reports: Other (Has dried lesions to right cheek, ear and trapezius area. Surrounding tissue is red. Warm. Swelling noted to right ear and neck region.)
== END 2018-10-03 11:22 | disposition home or self-care (01) | DRG 595 ==
LOC: CC.MS 08:50 → CC.FCMC 08:50 → UNDOADMIN 10:09 → CC.MS 10:09 → OBSVTOIN 10:37 → INTOOBSV 10:37 → CC.MS 10:37
PROVIDERS: ADMIT Nurse Practitioner Family; ATTEND Family Medicine
DX: B02.9 Zoster without complications (principal); J18.9 Pneumonia, unspecified organism; L03.811 Cellulitis of head [any part, except face]; D68.62 Lupus anticoagulant syndrome; K21.9 Gastro-esophageal reflux disease without esophagitis; M32.9 Systemic lupus erythematosus, unspecified; I10 Essential (primary) hypertension; Z79.01 Long term (current) use of anticoagulants; Z88.8 Allergy status to other drugs, medicaments and biological substances; Z79.899 Other long term (current) drug therapy; I25.2 Old myocardial infarction; Z95.1 Presence of aortocoronary bypass graft; Z90.49 Acquired absence of other specified parts of digestive tract; Z98.52 Vasectomy status; Z87.891 Personal history of nicotine dependence
CPT/HCPCS: 36415; 70460; 70491; 71046; 80048; 80053; 85025; 85610; 86140; 93005; A9270-GY; C9113; J0133; J0696; J1956; J2930; J7030; J7050; Q9967

== ENCOUNTER 2018-12-04 08:27 | Inpatient (IN) | payer MEDICARE, BC ==
[2018-12-04 09:01] LABS: CHLORIDE,CL 103 mEq/L (98-106); SODIUM,NA 140 mEq/L (136-145)
[2018-12-04] MEDS ORDERED: Acetaminophen 325 MG Tab PO PRN (10:48)
[2018-12-04] MEDS ORDERED: Sodium Chloride 0.9% 1,000 ML IV SCH (11:00)
[2018-12-04] MEDS: cefTRIAXone 1 GM Vial IVPUSH SCH (11:48)
[2018-12-04] MEDS: Albuterol/Ipratropium 3.0-0.5 MG/3 ML Neb Soln NEB SCH ×3 (11:49→19:31)
[2018-12-04] MEDS ORDERED: Azithromycin 500 MG in Sodium Chloride 0.9% 250 ML IV SCH (12:00)
[2018-12-04] MEDS: Ferrous Sulfate 324 MG Tab.EC PO SCH (13:21)
[2018-12-04] MEDS: Warfarin 5 MG Tab PO SCH (13:21)
[2018-12-04] MEDS: Simvastatin 40 MG Tab PO SCH (13:21)
[2018-12-04] MEDS: AZATHIOPRINE 50 MG PO SCH (19:31)
[2018-12-05] MEDS: Hydroxychloroquine 200 MG Tab PO SCH (07:55)
[2018-12-05] MEDS: Albuterol/Ipratropium 3.0-0.5 MG/3 ML Neb Soln NEB SCH ×4 (07:55→19:39)
[2018-12-05] MEDS: Losartan 25 MG Tab PO SCH (07:56)
[2018-12-05] MEDS: Metoprolol Succinate 25 MG Tab.ER PO SCH (07:57)
[2018-12-05] MEDS: Pantoprazole 40 MG Tab.CR PO SCH (07:57)
[2018-12-05] MEDS: predniSONE 5 MG Tab PO SCH (07:57)
[2018-12-05] MEDS: Multivitamin Tab PO SCH (07:57)
[2018-12-05] MEDS: AZATHIOPRINE 50 MG PO SCH ×2 (07:58→19:39)
[2018-12-05] MEDS ORDERED: Warfarin 2.5 MG Tab PO SCH (12:00)
[2018-12-05] MEDS: cefTRIAXone 1 GM Vial IVPUSH SCH (12:58)
--- NOTE | 2018-12-05 19:20 | PCM.PN ---
- General Info Date of Service: 12/05/18 Admission Dx/Problem (Free Text): RLL pneumonia Functional Status: Reports: Pain Controlled, Tolerating Diet, Ambulating - Review of Systems General: Reports: Fever, Malaise. Denies: Weakness, Fatigue HEENT: Reports: Rhinitis Pulmonary: Reports: Shortness of Breath, Cough, Sputum Cardiovascular: Denies: Chest Pain, Edema, Lightheadedness Gastrointestinal: Denies: Abdominal Pain, Nausea, Vomiting Genitourinary: Reports: No Symptoms Musculoskeletal: Reports: No Symptoms Skin: Reports: No Symptoms Neurological: Reports: No Symptoms - Patient Data Vitals - Most Recent: Last Vital Signs Temp 98.9 F 12/05/18 16:00 Pulse 94 12/05/18 16:00 Resp 18 12/05/18 16:00 BP 141/76 H 12/05/18 16:00 Pulse Ox 94 L 12/05/18 16:00 Weight - Most Recent: 144 lb 9.6 oz Lab Results Last 24 Hours: Laboratory Results - last 24 hr 12/05/18 12/05/18 12/05/18 Range/Units 07:10 07:10 07:10 WBC 8.4 (5.0-10.0) 10^3/uL RBC 4.10 L (4.50-6.00) 10^6/uL Hgb 11.9 L (14.0-18.0) g/dL Hct 37.3 L (40.0-54.0) % MCV 91.0 (82.0-94.0) fL MCH 29.0 (27.0-32.0) pg MCHC 31.9 L (33.0-38.0) g/dL RDW Coeff of Laura 15.5 H (11.0-15.0) % Plt Count 206 (150-400) 10^3/uL Neut % (Auto) 76.8 (35-85) % Lymph % (Auto) 7.2 L (10-55) % [place] % (Auto) 13.4 (0-16) % Eos % (Auto) 2.4 (0-5) % Baso % (Auto) 0.2 (0-3) % Neut # (Auto) 6.44 (1.80-7.00) 10^3/uL Lymph # (Auto) 0.60 L (1.00-4.80) 10^3/uL [place] # (Auto) 1.12 H (0.00-0.80) 10^3/uL Eos # (Auto) 0.20 (0.00-0.45) 10^3/uL Baso # (Auto) 0.02 10^3/uL PT 36.5 H (9.7-12.3) SEC INR 3.82 H (0.92-1.18) C-Reactive Protein 27.1 H (0.2-0.8) mg/dL [place] Results Last 24 Hours: Microbiology 12/04/18 13:22 Gram Stain - Final Sputum - Expectorated Sputum Culture - Preliminary Med Orders - Current: Current Medications Acetaminophen (Tylenol) 650 mg PO Q4H PRN PRN Reason: Pain (Mild 1-3)/fever Last Admin: 12/04/18 16:11 Dose: 650 mg Albuterol/Ipratropium (Duoneb 3.0-0.5 Mg/3 Ml) 3 ml NEB QIDRT [facility] Last Admin: 12/05/18 17:07 Dose: 3 ml Ceftriaxone Sodium (Rocephin) 1 gm IVPUSH Q24H [facility] Last Admin: 12/05/18 12:58 Dose: 1 gm Ferrous Sulfate (Ferrous Sulfate) 324 mg PO Q48H [facility] Last Admin: 12/04/18 13:21 Dose: 324 mg Hydroxychloroquine Sulfate (Plaquenil) 300 mg PO DAILY [facility] Last Admin: 12/05/18 07:55 Dose: 300 mg Vancomycin HCl 1 gm/ Sodium (Chloride) 250 mls @ 167 mls/hr IV Q18H [facility] Last Admin: 12/05/18 10:35 Dose: 167 mls/hr Losartan Potassium (Cozaar) 50 mg PO DAILY [facility] Last Admin: 12/05/18 07:56 Dose: 50 mg Metoprolol Succinate (Toprol Xl) 25 mg PO DAILY [facility] Last Admin: 12/05/18 07:57 Dose: 25 mg Multivitamins/Minerals/Vitamin C (Tab-A-Celso) 1 tab PO DAILY [facility] Last Admin: 12/05/18 07:57 Dose: 1 tab Azathioprine 50 Mg (Own Med) 0 tab PO BID [facility] Last Admin: 12/05/18 07:58 Dose: 1 tab Pantoprazole Sodium (Protonix) 40 mg PO DAILY [facility] Last Admin: 12/05/18 07:57 Dose: 40 mg Prednisone (Prednisone) 10 mg PO DAILY [facility] Last Admin: 12/05/18 07:57 Dose: 10 mg Simvastatin (Zocor) 40 mg PO Q48H [facility] Last Admin: 12/04/18 13:21 Dose: 40 mg Vancomycin HCl (Pharmacy To Dose - Vancomycin) 1 dose .XX ASDIRECTED [facility] Warfarin Sodium (Coumadin) 5 mg PO TuThSa@1200 [facility] Last Admin: 12/04/18 13:21 Dose: 5 mg Warfarin Sodium (Coumadin) 2.5 mg PO MoWeFr@1200 [facility] Warfarin Sodium (Coumadin) 5 mg PO Heath [facility] Discontinued Medications Azithromycin 500 mg/ Sodium (Chloride) 250 mls @ 250 mls/hr IV Q24H [facility] Last Admin: 12/04/18 12:16 Dose: 250 mls/hr Sodium Chloride (Normal Saline) 1,000 mls @ 75 mls/hr IV ASDIRECTED [facility] Stop: 12/05/18 00:19 Last Admin: 12/04/18 11:48 Dose: 75 mls/hr - Exam Quality Assessment: Supplemental Oxygen General: Alert, Oriented HEENT: Mucous Membr. Moist/[place] Neck: Supple Lungs: Decreased Breath Sounds, Wheezing Cardiovascular: Regular Rate, Regular Rhythm GI/Abdominal Exam: Normal Bowel Sounds, Soft, Non-Tender Extremities: Normal Inspection, No Pedal Edema Skin: Warm, Dry Neurological: No New Focal Deficit - Problem List & Annotations (1) RLL pneumonia SNOMED Code(s): 455376575 Code(s): J18.1 - LOBAR PNEUMONIA, UNSPECIFIED ORGANISM Status: Acute Priority: High Current Visit: Yes Qualifiers: Pneumonia type: due to unspecified organism Qualified Code(s): J18.1 - Lobar pneumonia, unspecified organism - Problem List Review Problem List Initiated/Reviewed/Updated: Yes - My Orders Last 24 Hours: My Active Orders 12/05/18 08:30 Pharmacy to Dose - Vancomycin 1 dose .XX ASDIRECTED - Assessment Assessment:: RLL Pneumonia, gram positive cocci - Plan Plan:: Patient admits to still not feeling well. Frequent cough with light brown sputum production. Low grade temps. Admits to decreased appetite. Lung sounds noted to have expiratory wheezing scattered throughout. WBC 8.4. CRP 27.2. INR high at 3.82. Initial sputum gram stain shows gram positive cocci. Will add Vancomycin until full culture report. Stop Zithromax, continue Rocephin. Nebs. Repeat labs in am. Inappropriate for discharge.
[2018-12-06] MEDS: Hydroxychloroquine 200 MG Tab PO SCH (08:22)
[2018-12-06] MEDS: predniSONE 5 MG Tab PO SCH (08:22)
[2018-12-06] MEDS: Losartan 25 MG Tab PO SCH (08:22)
[2018-12-06] MEDS: Multivitamin Tab PO SCH (08:23)
[2018-12-06] MEDS: Metoprolol Succinate 25 MG Tab.ER PO SCH (08:23)
[2018-12-06] MEDS: Pantoprazole 40 MG Tab.CR PO SCH (08:23)
[2018-12-06] MEDS: AZATHIOPRINE 50 MG PO SCH ×2 (08:24→19:45)
[2018-12-06] MEDS: Albuterol/Ipratropium 3.0-0.5 MG/3 ML Neb Soln NEB SCH ×4 (08:58→19:45)
[2018-12-06] MEDS: cefTRIAXone 1 GM Vial IVPUSH SCH (12:55)
[2018-12-06] MEDS: Warfarin 5 MG Tab PO SCH (12:57)
[2018-12-06] MEDS: Simvastatin 40 MG Tab PO SCH (13:03)
[2018-12-06] MEDS: Ferrous Sulfate 324 MG Tab.EC PO SCH (13:04)
--- NOTE | 2018-12-06 15:19 | PCM.PN ---
- General Info Date of Service: 12/06/18 Functional Status: Reports: Pain Controlled, Tolerating Diet, Ambulating - Review of Systems General: Reports: Weakness (general), Fatigue HEENT: Reports: Sinus Congestion Pulmonary: Reports: Shortness of Breath, Pleuritic Chest Pain, Cough, Sputum, Wheezing Cardiovascular: Reports: No Symptoms Gastrointestinal: Reports: No Symptoms Genitourinary: Reports: No Symptoms Musculoskeletal: Reports: No Symptoms Skin: Reports: No Symptoms Neurological: Reports: No Symptoms Psychiatric: Reports: No Symptoms - Patient Data Vitals - Most Recent: Last Vital Signs Temp 98.3 F 12/06/18 12:00 Pulse 95 12/06/18 12:00 Resp 18 12/06/18 12:00 BP 107/57 L 12/06/18 12:00 Pulse Ox 96 12/06/18 12:00 Weight - Most Recent: 144 lb 9.6 oz Lab Results Last 24 Hours: Laboratory Results - last 24 hr 12/06/18 12/06/18 12/06/18 Range/Units 07:00 07:00 07:00 WBC 10.6 H (5.0-10.0) 10^3/uL RBC 4.00 L (4.50-6.00) 10^6/uL Hgb 11.5 L (14.0-18.0) g/dL Hct 36.3 L (40.0-54.0) % MCV 90.8 (82.0-94.0) fL MCH 28.8 (27.0-32.0) pg MCHC 31.7 L (33.0-38.0) g/dL RDW Coeff of Laura 15.5 H (11.0-15.0) % Plt Count 218 (150-400) 10^3/uL Neut % (Auto) 80.7 (35-85) % Lymph % (Auto) 5.7 L (10-55) % [place] % (Auto) 10.8 (0-16) % Eos % (Auto) 2.4 (0-5) % Baso % (Auto) 0.4 (0-3) % Neut # (Auto) 8.57 H (1.80-7.00) 10^3/uL Lymph # (Auto) 0.60 L (1.00-4.80) 10^3/uL [place] # (Auto) 1.14 H (0.00-0.80) 10^3/uL Eos # (Auto) 0.25 (0.00-0.45) 10^3/uL Baso # (Auto) 0.04 10^3/uL PT 36.8 H (9.7-12.3) SEC INR 3.86 H (0.92-1.18) C-Reactive Protein 14.8 H (0.2-0.8) mg/dL [place] Results Last 24 Hours: Microbiology 12/04/18 13:22 Gram Stain - Final Sputum - Expectorated Sputum Culture - Final Med Orders - Current: Current Medications Acetaminophen (Tylenol) 650 mg PO Q4H PRN PRN Reason: Pain (Mild 1-3)/fever Last Admin: 12/04/18 16:11 Dose: 650 mg Albuterol/Ipratropium (Duoneb 3.0-0.5 Mg/3 Ml) 3 ml NEB QIDRT [facility] Last Admin: 12/06/18 12:55 Dose: 3 ml Ceftriaxone Sodium (Rocephin) 1 gm IVPUSH Q24H [facility] Last Admin: 12/06/18 12:55 Dose: 1 gm Ferrous Sulfate (Ferrous Sulfate) 324 mg PO Q48H [facility] Last Admin: 12/06/18 13:04 Dose: 324 mg Hydroxychloroquine Sulfate (Plaquenil) 300 mg PO DAILY [facility] Last Admin: 12/06/18 08:22 Dose: 300 mg Vancomycin HCl 1 gm/ Sodium (Chloride) 250 mls @ 167 mls/hr IV Q18H [facility] Last Admin: 12/06/18 03:45 Dose: 167 mls/hr Losartan Potassium (Cozaar) 50 mg PO DAILY [facility] Last Admin: 12/06/18 08:22 Dose: 50 mg Metoprolol Succinate (Toprol Xl) 25 mg PO DAILY [facility] Last Admin: 12/06/18 08:23 Dose: 25 mg Multivitamins/Minerals/Vitamin C (Tab-A-Celso) 1 tab PO DAILY [facility] Last Admin: 12/06/18 08:23 Dose: 1 tab Azathioprine 50 Mg (Own Med) 0 tab PO BID [facility] Last Admin: 12/06/18 08:24 Dose: 1 tab Pantoprazole Sodium (Protonix) 40 mg PO DAILY [facility] Last Admin: 12/06/18 08:23 Dose: 40 mg Prednisone (Prednisone) 10 mg PO DAILY [facility] Last Admin: 12/06/18 08:22 Dose: 10 mg Simvastatin (Zocor) 40 mg PO Q48H [facility] Last Admin: 12/06/18 13:03 Dose: 40 mg Vancomycin HCl (Pharmacy To Dose - Vancomycin) 1 dose .XX ASDIRECTED [facility] Warfarin Sodium (Coumadin) 5 mg PO TuThSa@1200 [facility] Last Admin: 12/06/18 12:57 Dose: Not Given Warfarin Sodium (Coumadin) 2.5 mg PO MoWeFr@1200 [facility] Warfarin Sodium (Coumadin) 5 mg PO Heath [facility] Discontinued Medications Azithromycin 500 mg/ Sodium (Chloride) 250 mls @ 250 mls/hr IV Q24H [facility] Last Admin: 12/04/18 12:16 Dose: 250 mls/hr Sodium Chloride (Normal Saline) 1,000 mls @ 75 mls/hr IV ASDIRECTED [facility] Stop: 12/05/18 00:19 Last Admin: 12/04/18 11:48 Dose: 75 mls/hr - Exam General: Alert, Oriented, Cooperative, No Acute Distress HEENT: Pupils Equal, Pupils Reactive, Mucous Membr. Moist/[place] Neck: Supple, Trachea Midline, No JVD Lungs: Decreased Breath Sounds (Lower bases), Wheezing (bialteral lower bases) Cardiovascular: Regular Rate (98 on exam), Regular Rhythm GI/Abdominal Exam: Normal Bowel Sounds, Soft, Non-Tender, No Organomegaly, No Distention Extremities: Normal Inspection, Normal Range of Motion, Non-Tender, No Pedal Edema, Normal Capillary Refill Peripheral Pulses: 2+: Radial (L), Radial (R), Posterior Tibial (L), Posterior Tibial (R) Skin: Warm, Dry, Intact Neurological: No New Focal Deficit Psy/Mental Status: Alert, Normal Affect, Normal Mood - Problem List Review Problem List Initiated/Reviewed/Updated: Yes - My Orders Last 24 Hours: My Active Orders 12/07/18 05:00 COMPREHENSIVE METABOLIC PN,CMP [CHEM] DAILY CRP [C-REACTIVE PROTEIN] [CHEM] DAILY 12/07/18 22:06 CBC WITH AUTO DIFF [HEME] DAILY 12/08/18 05:00 COMPREHENSIVE METABOLIC PN,CMP [CHEM] DAILY CRP [C-REACTIVE PROTEIN] [CHEM] DAILY 12/08/18 22:06 CBC WITH AUTO DIFF [HEME] DAILY - Assessment Assessment:: RLL Pneumonia, gram positive cocci - Plan Plan:: Patient admits to still not feeling well. Frequent cough with light brown sputum production. Low grade temps. Admits to decreased appetite. Lung sounds noted to have expiratory wheezing scattered throughout. WBC 8.4. CRP 27.2. INR high at 3.82. Initial sputum gram stain shows gram positive cocci. Will add Vancomycin until full culture report. Stop Zithromax, continue Rocephin. Nebs. Repeat labs in am. Inappropriate for discharge. 12/06/18 08:50am Patient was admitted for pneumonia. Patient reports having a productive cough and continued shortness of breath. He reports he is feeling a little better today. Patient does have audbile wheezing and decreased breath sounds. I have alerted the RN, who reports he is ready for a breathing tx now, she is giving. The patient wbc yesterday was 8.4, today 10.6, CRP yesterday 27.1, today 14.8, INR yesterday 3.82, today 3.86. At this time I will continue same dosing of coumadin and recheck INR tomorrow. The patient CX today was final and showed Moderate growth normal zac. However, the patient clinically lung sounds like pneumonia with decreased breath sounds and also bronchitis with wheezing. I will continue to treat the patient with Rocephin and Vanc based off patient clinical presentation and not the CX alone. Will reorder labs for tomorrow, continue breathing txs, and evaluate patient again tomorrow.
[2018-12-07] MEDS: predniSONE 5 MG Tab PO SCH (07:35)
[2018-12-07] MEDS: Multivitamin Tab PO SCH (07:35)
[2018-12-07] MEDS: Losartan 25 MG Tab PO SCH (07:35)
[2018-12-07] MEDS: Pantoprazole 40 MG Tab.CR PO SCH (07:35)
[2018-12-07] MEDS: Hydroxychloroquine 200 MG Tab PO SCH (07:36)
[2018-12-07] MEDS: Albuterol/Ipratropium 3.0-0.5 MG/3 ML Neb Soln NEB SCH ×4 (07:36→19:13)
[2018-12-07] MEDS: Metoprolol Succinate 25 MG Tab.ER PO SCH (07:36)
[2018-12-07] MEDS: AZATHIOPRINE 50 MG PO SCH ×2 (07:37→19:13)
[2018-12-07 08:07] LABS: CHLORIDE,CL 105 mEq/L (98-106); SODIUM,NA 140 mEq/L (136-145)
[2018-12-07] MEDS ORDERED: Azithromycin 500 MG in Sodium Chloride 0.9% 250 ML IV SCH (11:30)
[2018-12-07] MEDS: cefTRIAXone 1 GM Vial IVPUSH SCH (11:43)
--- NOTE | 2018-12-07 11:45 | PCM.PN ---
- General Info Date of Service: 12/07/18 Functional Status: Reports: Pain Controlled, Tolerating Diet, Ambulating, Other (Up in chair today. ) - Review of Systems General: Reports: No Symptoms, Weakness (generally mild). Denies: Fever, Appetite HEENT: Reports: No Symptoms Pulmonary: Reports: Shortness of Breath (mildly improved since yesterday), Cough , Sputum Cardiovascular: Reports: No Symptoms Gastrointestinal: Reports: No Symptoms Genitourinary: Reports: No Symptoms Musculoskeletal: Reports: No Symptoms Skin: Reports: No Symptoms Neurological: Reports: No Symptoms Psychiatric: Reports: No Symptoms - Patient Data Vitals - Most Recent: Last Vital Signs Temp 99.1 F 12/07/18 08:00 Pulse 86 12/07/18 08:00 Resp 20 12/07/18 08:00 BP 110/65 12/07/18 08:00 Pulse Ox 90 L 12/07/18 10:58 Weight - Most Recent: 144 lb 9.6 oz Lab Results Last 24 Hours: Laboratory Results - last 24 hr 12/07/18 12/07/18 12/07/18 Range/Units 07:00 07:00 07:10 WBC 11.3 H (5.0-10.0) 10^3/uL RBC 4.05 L (4.50-6.00) 10^6/uL Hgb 11.7 L (14.0-18.0) g/dL Hct 37.0 L (40.0-54.0) % MCV 91.4 (82.0-94.0) fL MCH 28.9 (27.0-32.0) pg MCHC 31.6 L (33.0-38.0) g/dL RDW Coeff of Laura 15.7 H (11.0-15.0) % Plt Count 253 (150-400) 10^3/uL Neut % (Auto) 79.6 (35-85) % Lymph % (Auto) 6.4 L (10-55) % [place] % (Auto) 10.8 (0-16) % Eos % (Auto) 3.0 (0-5) % Baso % (Auto) 0.2 (0-3) % Neut # (Auto) 9.01 H (1.80-7.00) 10^3/uL Lymph # (Auto) 0.73 L (1.00-4.80) 10^3/uL [place] # (Auto) 1.22 H (0.00-0.80) 10^3/uL Eos # (Auto) 0.34 (0.00-0.45) 10^3/uL Baso # (Auto) 0.02 10^3/uL PT 27.9 H (9.7-12.3) SEC INR 2.88 H (0.92-1.18) Sodium 140 (136-145) mEq/L Potassium 3.9 (3.5-5.0) mEq/L Chloride 105 (98-106) mEq/L Carbon Dioxide 26 (21-32) mmol/L BUN 7 (7-18) mg/dL Creatinine 0.8 (0.7-1.3) mg/dL Est Cr Clr Drug Dosing 62.69 mL/min Estimated GFR (MDRD) > 60 (>=60) mL/min Glucose 107 H (75-99) mg/dL Calcium 8.0 L (8.4-10.1) mg/dL Total Bilirubin 0.6 (0.0-1.0) mg/dL AST 25 (15-37) U/L ALT 22 (12-78) U/L Alkaline Phosphatase 61 (46-116) U/L C-Reactive Protein 11.3 H (0.2-0.8) mg/dL Total Protein 6.1 L (6.4-8.2) g/dL Albumin 2.4 L (3.4-5.0) g/dL [place] Results Last 24 Hours: Microbiology 12/04/18 13:22 Gram Stain - Final Sputum - Expectorated Sputum Culture - Final Med Orders - Current: Current Medications Acetaminophen (Tylenol) 650 mg PO Q4H PRN PRN Reason: Pain (Mild 1-3)/fever Last Admin: 12/04/18 16:11 Dose: 650 mg Albuterol/Ipratropium (Duoneb 3.0-0.5 Mg/3 Ml) 3 ml NEB QIDRT [facility] Last Admin: 12/07/18 07:36 Dose: 3 ml Ceftriaxone Sodium (Rocephin) 1 gm IVPUSH Q24H [facility] Last Admin: 12/06/18 12:55 Dose: 1 gm Ferrous Sulfate (Ferrous Sulfate) 324 mg PO Q48H [facility] Last Admin: 12/06/18 13:04 Dose: 324 mg Hydroxychloroquine Sulfate (Plaquenil) 300 mg PO DAILY [facility] Last Admin: 12/07/18 07:36 Dose: 300 mg Vancomycin HCl 1 gm/ Sodium (Chloride) 250 mls @ 167 mls/hr IV Q18H [facility] Losartan Potassium (Cozaar) 50 mg PO DAILY [facility] Last Admin: 12/07/18 07:35 Dose: 50 mg Metoprolol Succinate (Toprol Xl) 25 mg PO DAILY [facility] Last Admin: 12/07/18 07:36 Dose: 25 mg Multivitamins/Minerals/Vitamin C (Tab-A-Celso) 1 tab PO DAILY [facility] Last Admin: 12/07/18 07:35 Dose: 1 tab Azathioprine 50 Mg (Own Med) 0 tab PO BID [facility] Last Admin: 12/07/18 07:37 Dose: 1 tab Pantoprazole Sodium (Protonix) 40 mg PO DAILY [facility] Last Admin: 12/07/18 07:35 Dose: 40 mg Prednisone (Prednisone) 10 mg PO DAILY [facility] Last Admin: 12/07/18 07:35 Dose: 10 mg Simvastatin (Zocor) 40 mg PO Q48H [facility] Last Admin: 12/06/18 13:03 Dose: 40 mg Vancomycin HCl (Pharmacy To Dose - Vancomycin) 1 dose .XX ASDIRECTED [facility] Warfarin Sodium (Coumadin) 5 mg PO TuThSa@1200 [facility] Last Admin: 12/06/18 12:57 Dose: Not Given Warfarin Sodium (Coumadin) 2.5 mg PO MoWeFr@1200 [facility] Warfarin Sodium (Coumadin) 5 mg PO Heath [facility] Last Admin: 12/07/18 11:02 Dose: Not Given Warfarin Sodium (Coumadin) 2.5 mg PO ONETIME ONE Stop: 12/07/18 12:01 Discontinued Medications Azithromycin 500 mg/ Sodium (Chloride) 250 mls @ 250 mls/hr IV Q24H [facility] Last Admin: 12/04/18 12:16 Dose: 250 mls/hr Sodium Chloride (Normal Saline) 1,000 mls @ 75 mls/hr IV ASDIRECTED [facility] Stop: 12/05/18 00:19 Last Admin: 12/04/18 11:48 Dose: 75 mls/hr Vancomycin HCl 1 gm/ Sodium (Chloride) 250 mls @ 167 mls/hr IV Q18H [facility] Last Admin: 12/07/18 00:40 Dose: 167 mls/hr Vancomycin HCl (Pharmacy To Dose - Vancomycin) 1 dose .XX ASDIRECTED [facility] - Exam Quality Assessment: Supplemental Oxygen (1L NC currently after assessment) General: Alert, Oriented, Cooperative Neck: Supple Lungs: Normal Respiratory Effort, Crackles (RLL, improved since yesterday), Wheezing (throughout, imporved from yesterday.) Cardiovascular: Regular Rate, Regular Rhythm Extremities: Normal Inspection, Normal Range of Motion, Non-Tender, No Pedal Edema, Normal Capillary Refill Peripheral Pulses: 2+: Radial (L), Radial (R), Posterior Tibial (L), Posterior Tibial (R), Dorsalis Pedis (L), Dorsalis Pedis (R) Skin: Warm, Dry, Intact Neurological: No New Focal Deficit, Normal Gait, Normal Speech Psy/Mental Status: Alert, Normal Affect, Normal Mood - Problem List Review Problem List Initiated/Reviewed/Updated: Yes - My Orders Last 24 Hours: My Active Orders 12/07/18 12:00 Warfarin [Coumadin] 2.5 mg PO ONETIME ONE 12/07/18 16:00 Pharmacy to Dose - Vancomycin 1 dose .XX ASDIRECTED 12/08/18 05:00 COMPREHENSIVE METABOLIC PN,CMP [CHEM] DAILY CRP [C-REACTIVE PROTEIN] [CHEM] DAILY 12/08/18 22:06 CBC WITH AUTO DIFF [HEME] DAILY - Assessment Assessment:: RLL Pneumonia, gram positive cocci - Plan Plan:: Patient admits to still not feeling well. Frequent cough with light brown sputum production. Low grade temps. Admits to decreased appetite. Lung sounds noted to have expiratory wheezing scattered throughout. WBC 8.4. CRP 27.2. INR high at 3.82. Initial sputum gram stain shows gram positive cocci. Will add Vancomycin until full culture report. Stop Zithromax, continue Rocephin. Nebs. Repeat labs in am. Inappropriate for discharge. 12/06/18 08:50am Patient was admitted for pneumonia. Patient reports having a productive cough and continued shortness of breath. He reports he is feeling a little better today. Patient does have audbile wheezing and decreased breath sounds. I have alerted the RN, who reports he is ready for a breathing tx now, she is giving. The patient wbc yesterday was 8.4, today 10.6, CRP yesterday 27.1, today 14.8, INR yesterday 3.82, today 3.86. At this time I will continue same dosing of coumadin and recheck INR tomorrow. The patient CX today was final and showed Moderate growth normal zac. However, the patient clinically lung sounds like pneumonia with decreased breath sounds and also bronchitis with wheezing. I will continue to treat the patient with Rocephin and Vanc based off patient clinical presentation and not the CX alone. Will reorder labs for tomorrow, continue breathing txs, and evaluate patient again tomorrow. 12/06/18 11:10am Patient was admitted for pneumonia. Patient reports having a productive cough and continued shortness of breath. He reports he is feeling a little better today. Patient does have audbile wheezing and crackles RLL. The patient labs yesterday were WBC 10.6, INR 3.86, CRP 14.8. Today labs are WBC 11.3, INR 2.8, CRP 11.3. The patient is sitting up in a chair today. I have encouraged the patient today to get a shower and ambulate around the nurses station to evaluate how he does with this. Attempted to wean the patient, we was on RA, while sitting in his chair fell to 89%. He reported he was not any more short of breath than before the wean. The patient was placed back on oxygen 1% NC. He has been at 95%. Will attempt wean again later during admit. Will continue current tx plan and admit for pneumonia and hypoxia.
[2018-12-07] MEDS ORDERED: Warfarin 5 MG Tab PO SCH (12:00)
[2018-12-07] MEDS ORDERED: Warfarin 2.5 MG Tab PO ONE (12:00)
[2018-12-07] MEDS: methylPREDNISolone Sodium Succinate 125 MG/2 ML SDV IVPUSH SCH (19:54)
[2018-12-08] MEDS: Albuterol/Ipratropium 3.0-0.5 MG/3 ML Neb Soln NEB SCH ×4 (07:22→19:55)
[2018-12-08] MEDS: Multivitamin Tab PO SCH (07:22)
[2018-12-08] MEDS: Losartan 25 MG Tab PO SCH (07:22)
[2018-12-08] MEDS: Hydroxychloroquine 200 MG Tab PO SCH (07:22)
[2018-12-08] MEDS: Pantoprazole 40 MG Tab.CR PO SCH (07:23)
[2018-12-08] MEDS: predniSONE 5 MG Tab PO SCH (07:23)
[2018-12-08] MEDS: methylPREDNISolone Sodium Succinate 125 MG/2 ML SDV IVPUSH SCH ×2 (07:23→19:55)
[2018-12-08] MEDS: Metoprolol Succinate 25 MG Tab.ER PO SCH (07:23)
[2018-12-08] MEDS: AZATHIOPRINE 50 MG PO SCH ×2 (07:24→19:54)
[2018-12-08 07:31] LABS: CHLORIDE,CL 107 mEq/L (98-106); SODIUM,NA 142 mEq/L (136-145)
[2018-12-08] MEDS ORDERED: Sodium Chloride 0.9% 500 ML IV ONE (09:15)
[2018-12-08] MEDS ORDERED: Iopamidol 755 Mg/ML 100 ML Bottle IVPUSH ONE (09:36)
--- NOTE | 2018-12-08 10:23 | PCM.PN ---
- General Info Date of Service: 12/08/18 Functional Status: Reports: Pain Controlled, Tolerating Diet - Review of Systems General: Reports: Weakness (generally), Fatigue, Malaise HEENT: Reports: No Symptoms Pulmonary: Reports: Shortness of Breath, Cough, Sputum. Denies: Pleuritic Chest Pain, Hemoptysis Cardiovascular: Reports: No Symptoms Gastrointestinal: Reports: No Symptoms Genitourinary: Reports: No Symptoms Musculoskeletal: Reports: No Symptoms Skin: Reports: No Symptoms Neurological: Reports: No Symptoms Psychiatric: Reports: No Symptoms - Patient Data Vitals - Most Recent: Last Vital Signs Temp 97.6 F 12/08/18 07:21 Pulse 95 12/08/18 07:23 Resp 18 12/08/18 07:21 BP 133/71 12/08/18 07:23 Pulse Ox 95 12/08/18 07:21 Weight - Most Recent: 144 lb 9.6 oz Lab Results Last 24 Hours: Laboratory Results - last 24 hr 12/07/18 12/08/18 12/08/18 Range/Units 15:30 06:53 06:53 WBC 9.2 (5.0-10.0) 10^3/uL RBC 4.09 L (4.50-6.00) 10^6/uL Hgb 11.7 L (14.0-18.0) g/dL Hct 37.2 L (40.0-54.0) % MCV 91.0 (82.0-94.0) fL MCH 28.6 (27.0-32.0) pg MCHC 31.5 L (33.0-38.0) g/dL RDW Coeff of Laura 15.4 H (11.0-15.0) % Plt Count 256 (150-400) 10^3/uL Add Manual Diff Yes Neutrophils % (Manual) 86 H (35-85) % Band Neutrophils % 4 (0-5) % Lymphocytes % (Manual) 5 L (21-55) % Monocytes % (Manual) 5 (2-12) % Absolute Neutrophils 8.28 H (1.80-7.00) 10^3/uL Lymphocytes # (Manual) 0.46 L (1.00-4.80) 10^3/uL Monocytes # (Manual) 0.46 (0.00-0.80) 10^3/uL Sodium 142 (136-145) mEq/L Potassium 4.7 D (3.5-5.0) mEq/L Chloride 107 H (98-106) mEq/L Carbon Dioxide 26 (21-32) mmol/L BUN 7 (7-18) mg/dL Creatinine 0.8 (0.7-1.3) mg/dL Est Cr Clr Drug Dosing 62.69 mL/min Estimated GFR (MDRD) > 60 (>=60) mL/min Glucose 149 H D (75-99) mg/dL Calcium 8.1 L (8.4-10.1) mg/dL Total Bilirubin 0.4 (0.0-1.0) mg/dL AST 21 (15-37) U/L ALT 27 (12-78) U/L Alkaline Phosphatase 61 (46-116) U/L C-Reactive Protein 8.9 H (0.2-0.8) mg/dL Total Protein 6.2 L (6.4-8.2) g/dL Albumin 2.4 L (3.4-5.0) g/dL Vancomycin Trough 7.2 L (10-20) ug/mL Med Orders - Current: Current Medications Acetaminophen (Tylenol) 650 mg PO Q4H PRN PRN Reason: Pain (Mild 1-3)/fever Last Admin: 12/04/18 16:11 Dose: 650 mg Albuterol/Ipratropium (Duoneb 3.0-0.5 Mg/3 Ml) 3 ml NEB QIDRT [facility] Last Admin: 12/08/18 07:22 Dose: 3 ml Ceftriaxone Sodium (Rocephin) 1 gm IVPUSH Q24H [facility] Last Admin: 12/07/18 11:43 Dose: 1 gm Ferrous Sulfate (Ferrous Sulfate) 324 mg PO Q48H [facility] Last Admin: 12/06/18 13:04 Dose: 324 mg Hydroxychloroquine Sulfate (Plaquenil) 300 mg PO DAILY [facility] Last Admin: 12/08/18 07:22 Dose: 300 mg Vancomycin HCl 1 gm/ Sodium (Chloride) 250 mls @ 167 mls/hr IV Q12H [facility] Last Admin: 12/08/18 04:13 Dose: 167 mls/hr Losartan Potassium (Cozaar) 50 mg PO DAILY [facility] Last Admin: 12/08/18 07:22 Dose: 50 mg Methylprednisolone Sodium Succinate (Solu-Medrol) 62.5 mg IVPUSH Q12H [facility] Last Admin: 12/08/18 07:23 Dose: 62.5 mg Metoprolol Succinate (Toprol Xl) 25 mg PO DAILY [facility] Last Admin: 12/08/18 07:23 Dose: 25 mg Multivitamins/Minerals/Vitamin C (Tab-A-Celso) 1 tab PO DAILY [facility] Last Admin: 12/08/18 07:22 Dose: 1 tab Azathioprine 50 Mg (Own Med) 0 tab PO BID [facility] Last Admin: 12/08/18 07:24 Dose: 1 tab Pantoprazole Sodium (Protonix) 40 mg PO DAILY [facility] Last Admin: 12/08/18 07:23 Dose: 40 mg Prednisone (Prednisone) 10 mg PO DAILY [facility] Last Admin: 12/08/18 07:23 Dose: 10 mg Simvastatin (Zocor) 40 mg PO Q48H [facility] Last Admin: 12/06/18 13:03 Dose: 40 mg Vancomycin HCl (Pharmacy To Dose - Vancomycin) 1 dose .XX ASDIRECTED [facility] Warfarin Sodium (Coumadin) 5 mg PO TuThSa@1200 [facility] Last Admin: 12/06/18 12:57 Dose: Not Given Warfarin Sodium (Coumadin) 2.5 mg PO MoWeFr@1200 [facility] Warfarin Sodium (Coumadin) 5 mg PO Heath [facility] Last Admin: 12/07/18 11:02 Dose: Not Given Discontinued Medications Azithromycin 500 mg/ Sodium (Chloride) 250 mls @ 250 mls/hr IV Q24H [facility] Last Admin: 12/04/18 12:16 Dose: 250 mls/hr Sodium Chloride (Normal Saline) 1,000 mls @ 75 mls/hr IV ASDIRECTED [facility] Stop: 12/05/18 00:19 Last Admin: 12/04/18 11:48 Dose: 75 mls/hr Vancomycin HCl 1 gm/ Sodium (Chloride) 250 mls @ 167 mls/hr IV Q18H [facility] Last Admin: 12/07/18 00:40 Dose: 167 mls/hr Vancomycin HCl 1 gm/ Sodium (Chloride) 250 mls @ 167 mls/hr IV Q18H [facility] Sodium Chloride (Normal Saline) 500 mls @ 500 mls/hr IV .BOLUS ONE Stop: 12/08/18 10:14 Last Admin: 12/08/18 10:01 Dose: 500 mls/hr Iopamidol (Isovue-370 (76%)) 100 ml IVPUSH ONETIME ONE Stop: 12/08/18 09:37 Last Admin: 12/08/18 09:54 Dose: 100 ml Vancomycin HCl (Pharmacy To Dose - Vancomycin) 1 dose .XX ASDIRECTED [facility] Warfarin Sodium (Coumadin) 2.5 mg PO ONETIME ONE Stop: 12/07/18 12:01 Last Admin: 12/07/18 11:43 Dose: 2.5 mg - Exam Quality Assessment: Supplemental Oxygen General: Alert, Oriented, Cooperative, No Acute Distress HEENT: Pupils Equal, Pupils Reactive, Mucous Membr. Moist/[place] Neck: Supple Lungs: Decreased Breath Sounds (BLL), Rales, Wheezing (BUL), Other (Lungs sounds more decreased and not as good as yesterday.) Cardiovascular: Regular Rate, Regular Rhythm GI/Abdominal Exam: Normal Bowel Sounds, Soft, Non-Tender, No Organomegaly, No Distention, No Abnormal Bruit, No Mass, Pelvis Stable Back Exam: Normal Inspection, Full Range of Motion Extremities: Normal Inspection, Normal Range of Motion, Non-Tender, No Pedal Edema, Normal Capillary Refill Peripheral Pulses: 2+: Radial (L), Radial (R), Posterior Tibial (L), Posterior Tibial (R), Dorsalis Pedis (L), Dorsalis Pedis (R) Skin: Warm, Dry, Intact Neurological: No New Focal Deficit Psy/Mental Status: Alert, Normal Affect, Normal Mood - Problem List Review Problem List Initiated/Reviewed/Updated: Yes - My Orders Last 24 Hours: My Active Orders 12/07/18 16:00 Pharmacy to Dose - Vancomycin 1 dose .XX ASDIRECTED 12/07/18 20:00 methylPREDNISolone Sod Succ [Solu-MEDROL] 62.5 mg IVPUSH Q12H 12/08/18 09:07 Ang Chest [CT] Stat 12/08/18 10:08 INR,PT,PROTHROMBIN TIME [COAG] DAILY 12/09/18 05:00 INR,PT,PROTHROMBIN TIME [COAG] DAILY 12/10/18 05:00 INR,PT,PROTHROMBIN TIME [COAG] DAILY - Assessment Assessment:: RLL Pneumonia, gram positive cocci - Plan Plan:: Patient admits to still not feeling well. Frequent cough with light brown sputum production. Low grade temps. Admits to decreased appetite. Lung sounds noted to have expiratory wheezing scattered throughout. WBC 8.4. CRP 27.2. INR high at 3.82. Initial sputum gram stain shows gram positive cocci. Will add Vancomycin until full culture report. Stop Zithromax, continue Rocephin. Nebs. Repeat labs in am. Inappropriate for discharge. 12/06/18 08:50am Patient was admitted for pneumonia. Patient reports having a productive cough and continued shortness of breath. He reports he is feeling a little better today. Patient does have audbile wheezing and decreased breath sounds. I have alerted the RN, who reports he is ready for a breathing tx now, she is giving. The patient wbc yesterday was 8.4, today 10.6, CRP yesterday 27.1, today 14.8, INR yesterday 3.82, today 3.86. At this time I will continue same dosing of coumadin and recheck INR tomorrow. The patient CX today was final and showed Moderate growth normal zac. However, the patient clinically lung sounds like pneumonia with decreased breath sounds and also bronchitis with wheezing. I will continue to treat the patient with Rocephin and Vanc based off patient clinical presentation and not the CX alone. Will reorder labs for tomorrow, continue breathing txs, and evaluate patient again tomorrow. 12/07/18 11:10am Patient was admitted for pneumonia. Patient reports having a productive cough and continued shortness of breath. He reports he is feeling a little better today. Patient does have audbile wheezing and crackles RLL. The patient labs yesterday were WBC 10.6, INR 3.86, CRP 14.8. Today labs are WBC 11.3, INR 2.8, CRP 11.3. The patient is sitting up in a chair today. I have encouraged the patient today to get a shower and ambulate around the nurses station to evaluate how he does with this. Attempted to wean the patient, we was on RA, while sitting in his chair fell to 89%. He reported he was not any more short of breath than before the wean. The patient was placed back on oxygen 1% [place]. He has been at 95%. Will attempt wean again later during admit. Will continue current tx plan and admit for pneumonia and hypoxia. 12/08/18 09:10am Patient reports this morning that he is not feeling as good as yesterday. He reports he still feels short of breath. He reports that at home with activity he gets short of breath too. Patient labs today are WBC 9.2, CRP 8.9. His van trough yesterday was low, pharmacy has made changes for increase. Patient oxygen today is 91% on 1L NC. I had ordered an angio of the chest. Will await this result. INR is 2.73. Patient seems to be doing fine on 2.5mg daily. I will change his order to take coumadin 2.5mg daily starting today at noon, will recheck PT/INR tomorrow again. The plan for this patient will be to wait on these results to see if patient requires further changes in orders. Patient will see PCP tomorrow for further eval and consideration of home Oxygen.
[2018-12-08] MEDS: Simvastatin 40 MG Tab PO SCH (11:42)
[2018-12-08] MEDS: cefTRIAXone 1 GM Vial IVPUSH SCH (11:42)
[2018-12-08] MEDS: Warfarin 2.5 MG Tab PO SCH (11:42)
[2018-12-08] MEDS: Ferrous Sulfate 324 MG Tab.EC PO SCH (11:42)
--- NOTE | 2018-12-08 16:26 | PCM.SN ---
- Free Text/Narrative Note: Discussed CT angio with radiologist. He has several PEs scattered throughout the chest. 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 Currently on coumadin and therapeutic. There is also consolidation in bilateral bases consistent with pneumonia. Will continue abx treatment. Encouraged the patient to get up and ambulate the hallways with oxygen on. Discussed with RN to do this. I will keep patient acute today, as he needs to see his PCP tomorrow, stay on abx, breathing treatments, ambulation, discussion of oxygen at home. This patient with his PEs and bilateral base pneumonia needs close followup and care. 12/08/182129 This patient may need to swing tomorrow. Today, I had a conversation with the patient about getting up out of the chair and walking around the nurses station and the hallways with oxygen. He sits in the chair and does shallow breathing. I believe this to be the reason he is not improving. I was told by the RN that the patient today would not walk because there [place] [employer] game was on TV, then later Jeopardy was on TV. I told the nurse to get the patient up and walk him, he is here in the hospital to improve. Sitting in the chair will not improve his condition. Asked RN to also persuade patient to ambulate to improve his condition. I will order PT/OT for this patient as well.
[2018-12-09] MEDS: Pantoprazole 40 MG Tab.CR PO SCH (07:35)
[2018-12-09] MEDS: Losartan 25 MG Tab PO SCH (07:35)
[2018-12-09] MEDS: Albuterol/Ipratropium 3.0-0.5 MG/3 ML Neb Soln NEB SCH ×4 (07:35→19:56)
[2018-12-09] MEDS: methylPREDNISolone Sodium Succinate 125 MG/2 ML SDV IVPUSH SCH ×2 (07:35→19:41)
[2018-12-09] MEDS: Hydroxychloroquine 200 MG Tab PO SCH (07:35)
[2018-12-09] MEDS: Multivitamin Tab PO SCH (07:35)
[2018-12-09] MEDS: predniSONE 5 MG Tab PO SCH (07:36)
[2018-12-09] MEDS: AZATHIOPRINE 50 MG PO SCH ×2 (07:48→19:40)
[2018-12-09] MEDS: Metoprolol Succinate 25 MG Tab.ER PO SCH (08:13)
[2018-12-09] MEDS: cefTRIAXone 1 GM Vial IVPUSH SCH (12:16)
[2018-12-09] MEDS: Warfarin 2.5 MG Tab PO SCH (12:16)
--- NOTE | 2018-12-09 21:11 | PCM.PN ---
- General Info Date of Service: 12/09/18 Admission Dx/Problem (Free Text): RLL pneumonia Functional Status: Reports: Pain Controlled, Tolerating Diet, Ambulating - Review of Systems General: Reports: Weakness. Denies: Fever, Fatigue HEENT: Reports: Rhinitis Pulmonary: Reports: Shortness of Breath, Cough, Sputum Cardiovascular: Denies: Chest Pain, Edema, Lightheadedness Gastrointestinal: Reports: No Symptoms Genitourinary: Reports: No Symptoms Musculoskeletal: Reports: No Symptoms Skin: Reports: No Symptoms Neurological: Reports: No Symptoms - Patient Data Vitals - Most Recent: Last Vital Signs Temp 98.6 F 12/09/18 20:00 Pulse 96 12/09/18 20:00 Resp 20 12/09/18 20:00 BP 125/67 12/09/18 20:00 Pulse Ox 93 L 12/09/18 20:00 Weight - Most Recent: 144 lb 9.6 oz Lab Results Last 24 Hours: Laboratory Results - last 24 hr 12/09/18 Range/Units 07:05 PT 28.8 H (9.7-12.3) SEC INR 2.97 H (0.92-1.18) Med Orders - Current: Current Medications Acetaminophen (Tylenol) 650 mg PO Q4H PRN PRN Reason: Pain (Mild 1-3)/fever Last Admin: 12/04/18 16:11 Dose: 650 mg Albuterol/Ipratropium (Duoneb 3.0-0.5 Mg/3 Ml) 3 ml NEB QIDRT [facility] Last Admin: 12/09/18 19:56 Dose: 3 ml Ceftriaxone Sodium (Rocephin) 1 gm IVPUSH Q24H [facility] Last Admin: 12/09/18 12:16 Dose: 1 gm Ferrous Sulfate (Ferrous Sulfate) 324 mg PO Q48H [facility] Last Admin: 12/08/18 11:42 Dose: 324 mg Hydroxychloroquine Sulfate (Plaquenil) 300 mg PO DAILY [facility] Last Admin: 12/09/18 07:35 Dose: 300 mg Vancomycin HCl 1 gm/ Sodium (Chloride) 250 mls @ 167 mls/hr IV BID@0800,2000 [facility] Last Admin: 12/09/18 19:44 Dose: 167 mls/hr Losartan Potassium (Cozaar) 50 mg PO DAILY [facility] Last Admin: 12/09/18 07:35 Dose: 50 mg Methylprednisolone Sodium Succinate (Solu-Medrol) 62.5 mg IVPUSH Q12H [facility] Last Admin: 12/09/18 19:41 Dose: 62.5 mg Metoprolol Succinate (Toprol Xl) 25 mg PO DAILY [facility] Last Admin: 12/09/18 08:13 Dose: 25 mg Multivitamins/Minerals/Vitamin C (Tab-A-Celso) 1 tab PO DAILY [facility] Last Admin: 12/09/18 07:35 Dose: 1 tab Azathioprine 50 Mg (Own Med) 0 tab PO BID [facility] Last Admin: 12/09/18 19:40 Dose: 1 tab Pantoprazole Sodium (Protonix) 40 mg PO DAILY [facility] Last Admin: 12/09/18 07:35 Dose: 40 mg Prednisone (Prednisone) 10 mg PO DAILY [facility] Last Admin: 12/09/18 07:36 Dose: 10 mg Simvastatin (Zocor) 40 mg PO Q48H [facility] Last Admin: 12/08/18 11:42 Dose: 40 mg Vancomycin HCl (Pharmacy To Dose - Vancomycin) 1 dose .XX ASDIRECTED [facility] Warfarin Sodium (Coumadin) 2.5 mg PO DAILY@1200 [facility] Last Admin: 12/09/18 12:16 Dose: 2.5 mg Discontinued Medications Azithromycin 500 mg/ Sodium (Chloride) 250 mls @ 250 mls/hr IV Q24H [facility] Last Admin: 12/04/18 12:16 Dose: 250 mls/hr Sodium Chloride (Normal Saline) 1,000 mls @ 75 mls/hr IV ASDIRECTED [facility] Stop: 12/05/18 00:19 Last Admin: 12/04/18 11:48 Dose: 75 mls/hr Vancomycin HCl 1 gm/ Sodium (Chloride) 250 mls @ 167 mls/hr IV Q18H [facility] Last Admin: 12/07/18 00:40 Dose: 167 mls/hr Vancomycin HCl 1 gm/ Sodium (Chloride) 250 mls @ 167 mls/hr IV Q18H [facility] Vancomycin HCl 1 gm/ Sodium (Chloride) 250 mls @ 167 mls/hr IV Q12H [facility] Last Admin: 12/09/18 03:42 Dose: 167 mls/hr Sodium Chloride (Normal Saline) 500 mls @ 500 mls/hr IV .BOLUS ONE Stop: 12/08/18 10:14 Last Admin: 12/08/18 10:01 Dose: 500 mls/hr Iopamidol (Isovue-370 (76%)) 100 ml IVPUSH ONETIME ONE Stop: 12/08/18 09:37 Last Admin: 12/08/18 09:54 Dose: 100 ml Vancomycin HCl (Pharmacy To Dose - Vancomycin) 1 dose .XX ASDIRECTED [facility] Warfarin Sodium (Coumadin) 5 mg PO TuThSa@1200 [facility] Last Admin: 12/06/18 12:57 Dose: Not Given Warfarin Sodium (Coumadin) 2.5 mg PO MoWeFr@1200 [facility] Warfarin Sodium (Coumadin) 5 mg PO Heath [facility] Last Admin: 12/07/18 11:02 Dose: Not Given Warfarin Sodium (Coumadin) 2.5 mg PO ONETIME ONE Stop: 12/07/18 12:01 Last Admin: 12/07/18 11:43 Dose: 2.5 mg - Exam Quality Assessment: Supplemental Oxygen (with ambulation) General: Alert, Oriented HEENT: Mucous Membr. Moist/[place] Neck: Supple Lungs: Crackles (bases) Cardiovascular: Regular Rate, Regular Rhythm GI/Abdominal Exam: Normal Bowel Sounds, Soft, Non-Tender Extremities: Normal Inspection, No Pedal Edema Skin: Warm, Dry Neurological: Strength Equal Bilateral - Problem List & Annotations (1) RLL pneumonia SNOMED Code(s): 830330861 Code(s): J18.1 - LOBAR PNEUMONIA, UNSPECIFIED ORGANISM Status: Acute Priority: High Current Visit: Yes Qualifiers: Pneumonia type: due to unspecified organism Qualified Code(s): J18.1 - Lobar pneumonia, unspecified organism - Problem List Review Problem List Initiated/Reviewed/Updated: Yes - Assessment Assessment:: RLL Pneumonia, gram positive cocci - Plan Plan:: Patient admits to still not feeling well. Frequent cough with light brown sputum production. Low grade temps. Admits to decreased appetite. Lung sounds noted to have expiratory wheezing scattered throughout. WBC 8.4. CRP 27.2. INR high at 3.82. Initial sputum gram stain shows gram positive cocci. Will add Vancomycin until full culture report. Stop Zithromax, continue Rocephin. Nebs. Repeat labs in am. Inappropriate for discharge. 12/06/18 08:50am Patient was admitted for pneumonia. Patient reports having a productive cough and continued shortness of breath. He reports he is feeling a little better today. Patient does have audbile wheezing and decreased breath sounds. I have alerted the RN, who reports he is ready for a breathing tx now, she is giving. The patient wbc yesterday was 8.4, today 10.6, CRP yesterday 27.1, today 14.8, INR yesterday 3.82, today 3.86. At this time I will continue same dosing of coumadin and recheck INR tomorrow. The patient CX today was final and showed Moderate growth normal zac. However, the patient clinically lung sounds like pneumonia with decreased breath sounds and also bronchitis with wheezing. I will continue to treat the patient with Rocephin and Vanc based off patient clinical presentation and not the CX alone. Will reorder labs for tomorrow, continue breathing txs, and evaluate patient again tomorrow. 12/07/18 11:10am Patient was admitted for pneumonia. Patient reports having a productive cough and continued shortness of breath. He reports he is feeling a little better today. Patient does have audbile wheezing and crackles RLL. The patient labs yesterday were WBC 10.6, INR 3.86, CRP 14.8. Today labs are WBC 11.3, INR 2.8, CRP 11.3. The patient is sitting up in a chair today. I have encouraged the patient today to get a shower and ambulate around the nurses station to evaluate how he does with this. Attempted to wean the patient, we was on RA, while sitting in his chair fell to 89%. He reported he was not any more short of breath than before the wean. The patient was placed back on oxygen 1% NC. He has been at 95%. Will attempt wean again later during admit. Will continue current tx plan and admit for pneumonia and hypoxia. 12/08/18 09:10am Patient reports this morning that he is not feeling as good as yesterday. He reports he still feels short of breath. He reports that at home with activity he gets short of breath too. Patient labs today are WBC 9.2, CRP 8.9. His van trough yesterday was low, pharmacy has made changes for increase. Patient oxygen today is 91% on 1L NC. I had ordered an angio of the chest. Will await this result. INR is 2.73. Patient seems to be doing fine on 2.5mg daily. I will change his order to take coumadin 2.5mg daily starting today at noon, will recheck PT/INR tomorrow again. The plan for this patient will be to wait on these results to see if patient requires further changes in orders. Patient will see PCP tomorrow for further eval and consideration of home Oxygen. 12-09-2018 Patient stable this am, states feels "nearly back to my norm". Does still short of breath when up. Cough less frequent, productive at times. Had CT scan yesterday due to hypoxia, which did show bibasilar pneumonia, no PE. Patient's oxygen sats ar rest vary between 92-94%, drop quickly to 85% with minimal activity. Did ambulate in halls, able to maintain sat above 90% with 2 liters of oxygen. WBC normal at 9.2, CRP 8.9. Electrolytes normal. Afebrile. Will continue with IV antibiotics today, discharge home tomorrow as home oxygen being arranged today and will deliver tomorrow. Continue same dose of Coumadin with daily INR. Will need to closely follow on discharge home as well due to antibiotic use. also here and aware of arrangements.
[2018-12-10] MEDS: Hydroxychloroquine 200 MG Tab PO SCH (07:21)
[2018-12-10] MEDS: Multivitamin Tab PO SCH (07:25)
[2018-12-10] MEDS: Losartan 25 MG Tab PO SCH (07:25)
[2018-12-10] MEDS: Pantoprazole 40 MG Tab.CR PO SCH (07:25)
[2018-12-10] MEDS: Metoprolol Succinate 25 MG Tab.ER PO SCH (07:26)
[2018-12-10] MEDS: predniSONE 5 MG Tab PO SCH (07:26)
[2018-12-10 07:27] VITALS: BP 132/75
[2018-12-10] MEDS: AZATHIOPRINE 50 MG PO SCH (07:27)
[2018-12-10] MEDS: Albuterol/Ipratropium 3.0-0.5 MG/3 ML Neb Soln NEB SCH (07:27)
[2018-12-10] MEDS: methylPREDNISolone Sodium Succinate 125 MG/2 ML SDV IVPUSH SCH (07:27)
[2018-12-10 07:58] LABS: CHLORIDE,CL 108 mEq/L (98-106); SODIUM,NA 142 mEq/L (136-145)
[2018-12-10] MEDS: Warfarin 2.5 MG Tab PO SCH (12:05)
--- NOTE | 2018-12-10 21:12 | PCM.DCSUM1 ---
Discharge Summary - Hospital Course Free Text/Narrative:: Patient presented to clinic to see Susana due to generalized malaise, anorexia and increased cough. States has not had much of an appetite, lost 6# over the last 3 weeks due to not being able to eat. Cough has been frequent, productive of brownish phlegm. More short of breath than usual with increased activity intolerance. Patient has history of lupus and bilateral PE. Questions if possibly having a lupus flare due to the weakness. Is on daily Coumadin and Prednisone. Clinic work up did show new infiltrate in RLL. CRP elevated at 19.3. Admitted and started on IV Levaquin. Daily INR Diagnosis: Stroke: No Modified María Scale: No Symptoms at All Modified María Scale Score: 0 - Discharge Data Discharge Date: 12/10/18 Discharge Disposition: Home, Self-Care 01 Condition: Good - Discharge Diagnosis/Problem(s) (1) RLL pneumonia SNOMED Code(s): 682765973 ICD Code: J18.1 - LOBAR PNEUMONIA, UNSPECIFIED ORGANISM Status: Acute Priority: High Qualifiers: Pneumonia type: due to unspecified organism Qualified Code(s): J18.1 - Lobar pneumonia, unspecified organism - Patient Summary/Data Complications: none Consults: Consultations 12/08/18 21:40 Consult to Physical Therapy [PT Evaluation and Treatment] [CONS] Routine Hospital Course: Patient has had slow improvement of his status. He is coughing less frequently , less production now. Still short of breath with ambulation. Oxygen sats do still drop to 85-87% on room air when ambulating. Has been getting IV Levaquin and neb treatments. WBC peaked at 11.3, CRP at 27.1. INR has been high at times, Coumadin doses have been adjusted. Currently reduced dose to 2.5 mg daily. Lung sounds still note crackles in the RLL. Wheezing at times. Will discharge home on Ceftin. Home oxygen arranged due to drop with activity. - Patient Instructions Diet: Usual Diet as Tolerated Activity: As Tolerated Other/Special Instructions: INR prior to visit with Susana - Discharge Plan *PRESCRIPTION DRUG MONITORING PROGRAM REVIEWED*: No *COPY OF PRESCRIPTION DRUG MONITORING REPORT IN PATIENT ADILIA: No Prescriptions/Med Rec: Albuterol/Ipratropium [DuoNeb 3.0-0.5 MG/3 ML] 3 ml NEB QIDRT #28 neb Cefuroxime Axetil [Ceftin] 250 mg PO BID #20 tablet Warfarin [Coumadin] 2.5 mg PO DAILY@1200 #30 tablet Home Medications: Home Meds Rosuvastatin Calcium [Crestor] 20 mg PO Q48H 05/09/14 [History] Multivitamin [Multi-Day Vitamins] 1 tab PO DAILY 08/07/17 [History] Alendronate Sodium [Fosamax] 1 tab PO WEEKLY 07/31/18 [History] Ferrous Sulfate [Iron] 1 tab PO Q48H 07/31/18 [History] predniSONE [Prednisone] 10 mg PO DAILY 07/31/18 [History] Losartan [Cozaar] 50 mg PO DAILY #30 tab 08/04/18 [Rx] Metoprolol Succinate [Toprol XL] 25 mg PO DAILY #30 tab.er 08/04/18 [Rx] Pantoprazole Sodium [Protonix] 40 mg PO DAILY #30 tablet. 08/04/18 [Rx] Hydroxychloroquine [Plaquenil] 1.5 tab PO DAILY 12/04/18 [History] azaTHIOprine [Azathioprine] 50 tab PO BID 12/04/18 [History] Albuterol/Ipratropium [DuoNeb 3.0-0.5 MG/3 ML] 3 ml NEB QIDRT #28 neb 12/10/18 [ Rx] Cefuroxime Axetil [Ceftin] 250 mg PO BID #20 tablet 12/10/18 [Rx] Warfarin [Coumadin] 2.5 mg PO DAILY@1200 #30 tablet 12/10/18 [Rx] Oxygen Therapy Mode: Nasal Cannula Patient Handouts: Community-Acquired Pneumonia, Adult Referrals: Susana Meehan [employer]PL[employer] TESTER [Primary Care Provider] - (Follow up with Susana in one week) - Discharge Summary/Plan Comment DC Time >30 min.: No - General Info Date of Service: 12/10/18 Admission Dx/Problem (Free Text: RLL pneumonia Functional Status: Reports: Pain Controlled, Tolerating Diet, Ambulating - Review of Systems General: Reports: Weakness, Malaise. Denies: Fever, Fatigue HEENT: Reports: Rhinitis Pulmonary: Reports: Shortness of Breath, Cough, Sputum Cardiovascular: Denies: Chest Pain, Edema, Lightheadedness Gastrointestinal: Denies: Abdominal Pain, Nausea, Vomiting Genitourinary: Reports: No Symptoms Musculoskeletal: Reports: No Symptoms Skin: Reports: No Symptoms Neurological: Reports: No Symptoms Psychiatric: Reports: No Symptoms - Patient Data Vitals - Most Recent: Last Vital Signs Temp 97.1 F 12/10/18 07:57 Pulse 80 12/10/18 07:57 Resp 20 12/10/18 07:57 BP 132/75 12/10/18 07:57 Pulse Ox 93 L 12/10/18 07:57 Weight - Most Recent: 144 lb 9.6 oz Lab Results - Last 24 hrs: Laboratory Results - last 24 hr 12/10/18 12/10/18 Range/Units 07:30 07:30 PT 30.1 H (9.7-12.3) SEC INR 3.12 H (0.92-1.18) Sodium 142 (136-145) mEq/L Potassium 4.4 (3.5-5.0) mEq/L Chloride 108 H (98-106) mEq/L Carbon Dioxide 25 (21-32) mmol/L BUN 13 D (7-18) mg/dL Creatinine 0.8 (0.7-1.3) mg/dL Est Cr Clr Drug Dosing 62.69 mL/min Estimated GFR (MDRD) > 60 (>=60) mL/min Glucose 121 H (75-99) mg/dL Calcium 7.9 L (8.4-10.1) mg/dL Vancomycin Trough 12.7 (10-20) ug/mL Med Orders - Current: Current Medications Discontinued Medications Acetaminophen (Tylenol) 650 mg PO Q4H PRN PRN Reason: Pain (Mild 1-3)/fever Last Admin: 12/04/18 16:11 Dose: 650 mg Albuterol/Ipratropium (Duoneb 3.0-0.5 Mg/3 Ml) 3 ml NEB QIDRT [facility] Last Admin: 12/10/18 07:27 Dose: 3 ml Ceftriaxone Sodium (Rocephin) 1 gm IVPUSH Q24H [facility] Last Admin: 12/09/18 12:16 Dose: 1 gm Ferrous Sulfate (Ferrous Sulfate) 324 mg PO Q48H [facility] Last Admin: 12/08/18 11:42 Dose: 324 mg Hydroxychloroquine Sulfate (Plaquenil) 300 mg PO DAILY [facility] Last Admin: 12/10/18 07:21 Dose: 300 mg Azithromycin 500 mg/ Sodium (Chloride) 250 mls @ 250 mls/hr IV Q24H [facility] Last Admin: 12/04/18 12:16 Dose: 250 mls/hr Sodium Chloride (Normal Saline) 1,000 mls @ 75 mls/hr IV ASDIRECTED [facility] Stop: 12/05/18 00:19 Last Admin: 12/04/18 11:48 Dose: 75 mls/hr Vancomycin HCl 1 gm/ Sodium (Chloride) 250 mls @ 167 mls/hr IV Q18H [facility] Last Admin: 12/07/18 00:40 Dose: 167 mls/hr Vancomycin HCl 1 gm/ Sodium (Chloride) 250 mls @ 167 mls/hr IV Q18H [facility] Vancomycin HCl 1 gm/ Sodium (Chloride) 250 mls @ 167 mls/hr IV Q12H [facility] Last Admin: 12/09/18 03:42 Dose: 167 mls/hr Sodium Chloride (Normal Saline) 500 mls @ 500 mls/hr IV .BOLUS ONE Stop: 12/08/18 10:14 Last Admin: 12/08/18 10:01 Dose: 500 mls/hr Vancomycin HCl 1 gm/ Sodium (Chloride) 250 mls @ 167 mls/hr IV BID@0800,2000 [facility] Last Admin: 12/10/18 08:52 Dose: 167 mls/hr Iopamidol (Isovue-370 (76%)) 100 ml IVPUSH ONETIME ONE Stop: 12/08/18 09:37 Last Admin: 12/08/18 09:54 Dose: 100 ml Losartan Potassium (Cozaar) 50 mg PO DAILY [facility] Last Admin: 12/10/18 07:25 Dose: 50 mg Methylprednisolone Sodium Succinate (Solu-Medrol) 62.5 mg IVPUSH Q12H [facility] Last Admin: 12/10/18 07:27 Dose: 62.5 mg Metoprolol Succinate (Toprol Xl) 25 mg PO DAILY [facility] Last Admin: 12/10/18 07:26 Dose: 25 mg Multivitamins/Minerals/Vitamin C (Tab-A-Celso) 1 tab PO DAILY [facility] Last Admin: 12/10/18 07:25 Dose: 1 tab Azathioprine 50 Mg (Own Med) 0 tab PO BID [facility] Last Admin: 12/10/18 07:27 Dose: 1 tab Pantoprazole Sodium (Protonix) 40 mg PO DAILY [facility] Last Admin: 12/10/18 07:25 Dose: 40 mg Prednisone (Prednisone) 10 mg PO DAILY [facility] Last Admin: 12/10/18 07:26 Dose: 10 mg Simvastatin (Zocor) 40 mg PO Q48H [facility] Last Admin: 12/08/18 11:42 Dose: 40 mg Vancomycin HCl (Pharmacy To Dose - Vancomycin) 1 dose .XX ASDIRECTED [facility] Vancomycin HCl (Pharmacy To Dose - Vancomycin) 1 dose .XX ASDIRECTED [facility] Warfarin Sodium (Coumadin) 5 mg PO TuThSa@1200 [facility] Last Admin: 12/06/18 12:57 Dose: Not Given Warfarin Sodium (Coumadin) 2.5 mg PO MoWeFr@1200 [facility] Warfarin Sodium (Coumadin) 5 mg PO Heath [facility] Last Admin: 12/07/18 11:02 Dose: Not Given Warfarin Sodium (Coumadin) 2.5 mg PO ONETIME ONE Stop: 12/07/18 12:01 Last Admin: 12/07/18 11:43 Dose: 2.5 mg Warfarin Sodium (Coumadin) 2.5 mg PO DAILY@1200 [facility] Last Admin: 12/10/18 12:05 Dose: Not Given - Exam Quality Assessment: Reports: Supplemental Oxygen General: Reports: Alert, Oriented HEENT: Reports: Mucous Membr. Moist/[place] Neck: Reports: Supple Lungs: Reports: Decreased Breath Sounds, Crackles (RLL) Cardiovascular: Reports: Regular Rate, Regular Rhythm GI/Abdominal Exam: Normal Bowel Sounds, Soft, Non-Tender Extremities: Normal Inspection, No Pedal Edema Skin: Reports: Warm, Dry Neurological: Reports: No New Focal Deficit
== END 2018-12-10 13:00 | disposition home or self-care (01) | DRG 195 ==
LOC: CC.FCMC 08:27 → UNDOADMIN 10:14 → CC.MS 10:14
PROVIDERS: ADMIT Nurse Practitioner Family; ATTEND Family Medicine
DX: J18.1 Lobar pneumonia, unspecified organism (principal); J15.6 Pneumonia due to other Gram-negative bacteria; M32.9 Systemic lupus erythematosus, unspecified; K21.9 Gastro-esophageal reflux disease without esophagitis; I25.2 Old myocardial infarction; Z90.49 Acquired absence of other specified parts of digestive tract; Z86.711 Personal history of pulmonary embolism; Z79.01 Long term (current) use of anticoagulants; Z79.899 Other long term (current) drug therapy; Z95.1 Presence of aortocoronary bypass graft; Z79.52 Long term (current) use of systemic steroids; Z88.8 Allergy status to other drugs, medicaments and biological substances; Z98.52 Vasectomy status; Z87.891 Personal history of nicotine dependence; R00.0 Tachycardia, unspecified; R01.1 Cardiac murmur, unspecified; R06.02 Shortness of breath; R53.81 Other malaise; R06.7 Sneezing; R53.83 Other fatigue; R05 Cough
CPT/HCPCS: 36415; 71046; 71275; 80048; 80053; 80202; 81001; 83880; 84484; 85025; 85610; 86140; 87070; 87205; 93005; 94640; 97161-GP; A9270-GY; J0456; J0696; J2930; J3370; J7030; J7040; J7050; J7620-GY; Q9967

== ENCOUNTER 2019-01-29 18:09 | Emergency (ER) | payer MEDICARE, BC ==
[2019-01-29] MEDS ORDERED: Cefuroxime 250 MG Tab PO ONE (18:10)
[2019-01-29 18:13] VITALS: BP 134/79; PULSE 85
--- NOTE | 2019-01-29 18:26 | EDM.PDOC ---
ED HPI GENERAL MEDICAL PROBLEM - General Chief Complaint: General Stated Complaint: ANKLE REDNESS Time Seen by Provider: 01/29/19 18:11 Source of Information: Reports: Patient History Limitations: Reports: No Limitations - History of Present Illness INITIAL COMMENTS - FREE TEXT/NARRATIVE: bumped spence a few days ago when mowing. Started to have some bruising to the right lower spence 3-4 days ago and last night it started to get red and itchy and it is spreading and has now become warm to touch and it is more painful. Onset: Gradual Location: Reports: Lower Extremity, Right Quality: Reports: Burning - Related Data Allergies Allergy/AdvReac Type Severity Reaction Status Date / Time atorvastatin calcium Allergy Rash Verified 01/29/19 18:13 [From Lipitor] cerivastatin sodium Allergy Rash Verified 01/29/19 18:13 [From Baycol] lisinopril Allergy Cannot Verified 01/29/19 18:13 Remember Home Meds: Home Meds Rosuvastatin Calcium [Crestor] 20 mg PO Q48H 05/09/14 [History] Multivitamin [Multi-Day Vitamins] 1 tab PO DAILY 08/07/17 [History] Alendronate Sodium [Fosamax] 1 tab PO WEEKLY 07/31/18 [History] Ferrous Sulfate [Iron] 1 tab PO Q48H 07/31/18 [History] predniSONE [Prednisone] 7.5 mg PO DAILY 07/31/18 [History] Metoprolol Succinate [Toprol XL] 25 mg PO DAILY #30 tab.er 08/04/18 [Rx] Pantoprazole Sodium [Protonix] 40 mg PO DAILY #30 tablet. 08/04/18 [Rx] Hydroxychloroquine [Plaquenil] 1.5 tab PO DAILY 12/04/18 [History] azaTHIOprine [Azathioprine] 50 tab PO BID 12/04/18 [History] Albuterol/Ipratropium [DuoNeb 3.0-0.5 MG/3 ML] 3 ml BANNER QIDRT #28 neb 12/10/18 [ Rx] Warfarin [Coumadin] 2.5 mg PO WE 01/29/19 [History] Warfarin [Coumadin] 5 mg PO SUMOTUTHFRSA 01/29/19 [History] Past Medical History HEENT History: Reports: None Cardiovascular History: Reports: Bypass, High Cholesterol, Hypertension, [place] Respiratory History: Reports: None Gastrointestinal History: Reports: None Genitourinary History: Reports: None Musculoskeletal History: Reports: None Neurological History: Reports: None Psychiatric History: Reports: None Endocrine/Metabolic History: Reports: None Other Hematologic History: diagnosed with Lupus Immunologic History: Reports: None Oncologic (Cancer) History: Reports: Prostate Dermatologic History: Reports: None - Infectious Disease History Infectious Disease History: Reports: None - Past Surgical History Head Surgeries/Procedures: Reports: None HEENT Surgical History: Reports: None Cardiovascular Surgical History: Reports: Coronary Artery Bypass, Coronary Artery Stent Respiratory Surgical History: Reports: None GI Surgical History: Reports: Cholecystectomy, Hernia, Abdominal, Sandra Fundoplication Male Surgical History: Reports: Prostatectomy Endocrine Surgical History: Reports: None Neurological Surgical History: Reports: None Musculoskeletal Surgical History: Reports: None Oncologic Surgical History: Reports: None Dermatological Surgical History: Reports: None Social & Family History - Family History Family Medical History: Noncontributory - Tobacco Use Smoking Status *Q: Former Smoker Used Tobacco, but Quit: Yes Month/Year Tobacco Last Used: 45 years ago - Caffeine Use Caffeine Use: Reports: None ED ROS GENERAL - Review of Systems Review Of Systems: See Below Constitutional: Denies: Fever, Chills HEENT: Reports: No Symptoms Respiratory: Reports: No Symptoms Cardiovascular: Reports: No Symptoms Musculoskeletal: Reports: No Symptoms Skin: Reports: Bruising, Erythema, Wound Neurological: Reports: No Symptoms ED EXAM, GENERAL - Physical Exam Exam: See Below Exam Limited By: No Limitations General Appearance: Alert, WD/WN, Mild Distress Respiratory/Chest: No Respiratory Distress, Lungs Clear, Normal Breath Sounds Cardiovascular: No Edema Extremities: No Pedal Edema Skin Exam: Erythema (Erythema and bruising noted to the right lower leg. It is warm to touch and tender. No distal edema noted. No open areas. There is scabbed over area above the redness that is not draining at this time.) Course - Vital Signs Last Recorded V/S: Last Vital Signs Temp 98.2 F 01/29/19 18:10 Pulse 85 01/29/19 18:10 Resp 20 01/29/19 18:10 BP 134/79 01/29/19 18:10 Pulse Ox 93 L 01/29/19 18:10 - Orders/Labs/Meds Orders: Active Orders 24 hr Category Date Time Status INR,PT,PROTHROMBIN TIME [COAG] Stat Lab 01/29/19 18:22 Ordered Cefuroxime [Take Home: Cefuroxime 250 MG, 2 Tab Pack] Med 01/29/19 18:43 Once 1 packet PO ONETIME ONE Labs: Laboratory Tests 01/29/19 Range/Units 18:15 WBC 10.5 H (5.0-10.0) 10^3/uL RBC 4.61 (4.50-6.00) 10^6/uL Hgb 13.4 L (14.0-18.0) g/dL Hct 41.7 (40.0-54.0) % MCV 90.5 (82.0-94.0) fL MCH 29.1 (27.0-32.0) pg MCHC 32.1 L (33.0-38.0) g/dL RDW Coeff of Laura 16.2 H (11.0-15.0) % Plt Count 196 (150-400) 10^3/uL Neut % (Auto) 75.7 (35-85) % Lymph % (Auto) 10.7 (10-55) % [place] % (Auto) 12.4 (0-16) % Eos % (Auto) 0.7 (0-5) % Baso % (Auto) 0.5 (0-3) % Neut # (Auto) 7.91 H (1.80-7.00) 10^3/uL Lymph # (Auto) 1.12 (1.00-4.80) 10^3/uL [place] # (Auto) 1.30 H (0.00-0.80) 10^3/uL Eos # (Auto) 0.07 (0.00-0.45) 10^3/uL Baso # (Auto) 0.05 10^3/uL - Re-Assessments/Exams Free Text/Narrative Re-Assessment/Exam: 01/29/19 18:43 discussed lab results with elevated white count. will discharge on antibiotics Departure - Departure Time of Disposition: 18:44 Disposition: Home, Self-Care 01 Clinical Impression: Cellulitis Qualifiers: Site of cellulitis: head Qualified Code(s): L03.811 - Cellulitis of head [any part, except face] - Discharge Information *PRESCRIPTION DRUG MONITORING PROGRAM REVIEWED*: Not Applicable *COPY OF PRESCRIPTION DRUG MONITORING REPORT IN PATIENT AIDLIA: Not Applicable Instructions: Cellulitis, Adult, [id number] Referrals: Susana Meehan, RISK COMPLIANCE ANALYST [Primary Care Provider] - Forms: ED Department Discharge Additional Instructions: ceftin 500 mg twice a day for 10 days elevate leg for swelling as needed recheck next week with Susana in the clinic - Problem List & Annotations (1) Cellulitis SNOMED Code(s): 421337625 Code(s): L03.90 - CELLULITIS, UNSPECIFIED Status: Acute Priority: High Current Visit: Yes Qualifiers: Site of cellulitis: head Qualified Code(s): L03.811 - Cellulitis of head [ any part, except face] - Problem List Review Problem List Initiated/Reviewed/Updated: Yes - My Orders Last 24 Hours: My Active Orders 01/29/19 18:22 INR,PT,PROTHROMBIN TIME [COAG] Stat 01/29/19 18:43 Cefuroxime [Take Home: Cefuroxime 250 MG, 2 Tab Pack] 1 packet PO ONETIME ONE - Assessment/Plan Last 24 Hours: My Active Orders 01/29/19 18:22 INR,PT,PROTHROMBIN TIME [COAG] Stat 01/29/19 18:43 Cefuroxime [Take Home: Cefuroxime 250 MG, 2 Tab Pack] 1 packet PO ONETIME ONE
[2019-01-29] MEDS ORDERED: Take Home: Cefuroxime 250 MG Tab, 2 Tab Pack PO ONE (18:43)
== END 2019-01-29 18:51 | disposition home or self-care (01) ==
LOC: CC.ED 18:09 → SUPCPDRO 18:09 → CC.ED 18:51
DX: L03.115 Cellulitis of right lower limb (principal); E78.00 Pure hypercholesterolemia, unspecified; I10 Essential (primary) hypertension; I25.2 Old myocardial infarction; Z79.01 Long term (current) use of anticoagulants; Z87.891 Personal history of nicotine dependence; Z79.899 Other long term (current) drug therapy; Z88.8 Allergy status to other drugs, medicaments and biological substances
CPT/HCPCS: 36415; 85025; 85610; 99283; A9270

== ENCOUNTER 2020-05-02 02:45 | Emergency (ER) | payer MEDICARE, BC ==
[2020-05-02 03:03] VITALS: BP 162/81; PULSE 74
[2020-05-02 03:21] LABS: PTT,PARTIAL THROMBOPLSTIN TIME 31.8 SEC (23.2-32.3)
[2020-05-02 03:27] LABS: CHLORIDE,CL 104 mEq/L (98-106); SODIUM,NA 143 mEq/L (136-145)
[2020-05-02] MEDS ORDERED: Aspirin 81 MG Tab.Chew PO ONE (03:29)
[2020-05-02] MEDS ORDERED: Nitroglycerin 0.4 MG Tab.SL SL PRN (03:30)
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
[2020-05-02] MEDS ORDERED: Nitroglycerin 2% Oint 1 GM UD Packet TOP ONE (09:08)
[2020-05-02] MEDS ORDERED: Enoxaparin 80 MG/0.8 ML Syringe SUBCUT SCH (10:00)
== END 2020-05-02 11:05 ==
LOC: CC.ED 02:45
DX: I24.9 Acute ischemic heart disease, unspecified (principal); R79.89 Other specified abnormal findings of blood chemistry; E78.5 Hyperlipidemia, unspecified; I10 Essential (primary) hypertension; I25.2 Old myocardial infarction; K21.9 Gastro-esophageal reflux disease without esophagitis; M32.9 Systemic lupus erythematosus, unspecified; Z88.8 Allergy status to other drugs, medicaments and biological substances; Z79.899 Other long term (current) drug therapy; Z79.01 Long term (current) use of anticoagulants; Z87.891 Personal history of nicotine dependence
CPT/HCPCS: 36415; 71046; 80053; 82550; 83615; 83690; 84484; 85025; 85610; 85730; 93005; 99284; 99285-25; A9270-GY

== ENCOUNTER 2023-03-15 07:07 | Emergency (ER) | payer MEDICARE, BC ==
[2023-03-15] MEDS ORDERED: Aspirin 81 MG Tab.Chew PO ONE (07:15)
[2023-03-15 07:31] LABS: BASOPHILS ABSOLUTE AUTO 0.03 10^3/uL (0.00-0.50); BASOPHILS PERCENT AUTO 0.4 % (0-1); EOSINOPHILS ABSOLUTE AUTO 0.32 10^3/uL (0.00-1.50); EOSINOPHILS PERCENT AUTO 4.1 % (0-6); HEMOGLOBIN 12.5 g/dL (14.0-18.0); IMMATURE GRAN ABSOLUTE AUTO 0.01 10^3/uL (0.00-0.49); IMMATURE GRAN PERCENT AUTO 0.1 % (0.0-4.9); LYMPHOCYTES ABSOLUTE AUTO 0.82 10^3/uL (0.60-5.00); LYMPHOCYTES PERCENT AUTO 10.5 % (24-44); MEAN CORPUSCULAR HEMOGLOBIN 28.9 pg (27.0-32.0); MEAN CORPUSCULAR HGB CONC 32.9 g/dL (32.0-36.0); MEAN CORPUSCULAR VOLUME 87.8 fL (83.0-97.0); MONOCYTES ABSOLUTE AUTO 0.93 10^3/uL (0.00-1.50); MONOCYTES PERCENT AUTO 11.9 % (0-10); NEUTROPHILS ABSOLUTE AUTO 5.68 x10^3/uL (1.80-8.00); PLATELET COUNT,PLT 144 10^3/uL (150-400); RED BLOOD CELL COUNT 4.33 x10^6/uL (4.50-6.00); WHITE BLOOD CELL COUNT,WBC 7.8 10^3/uL (4.0-11.0)
[2023-03-15 07:37] LABS: APPEARANCE,URINE CLEAR (CLEAR); BILIRUBIN,URINE NEGATIVE (NEGATIVE); COLOR,URINE YELLOW (YELLOW); GLUCOSE,URINE NEGATIVE (NEGATIVE); KETONES,URINE NEGATIVE (NEGATIVE); LEUKOCYTE ESTERASE,URINE NEGATIVE (NEGATIVE); NITRITE,URINE NEGATIVE (NEGATIVE); OCCULT BLOOD,URINE NEGATIVE (NEGATIVE); PH,URINE 6.5 (4.5-8.0); PROTEIN,URINE 30 mg/dL (NEGATIVE); UROBILINOGEN,URINE 0.2 EU/dL (0.2-1.0)
[2023-03-15 07:44] LABS: PROTHROMBIN TIME 42.9 SEC (9.3-11.3); PTT,PARTIAL THROMBOPLSTIN TIME 36.8 SEC (20.0-30.0)
[2023-03-15 07:53] LABS: ALBUMIN 3.6 g/dL (3.4-5.0); BILIRUBIN TOTAL 0.7 mg/dL (0.0-1.0); CALCIUM 9.3 mg/dL (8.4-10.1); CREATININE 1.2 mg/dL (0.7-1.3); EST CRCL DRUG DOSING (CG) 38.37 mL/min; MAGNESIUM 1.8 mg/dL (1.8-2.4); POTASSIUM,K 4.4 mEq/L (3.5-5.0); PROTEIN TOTAL,TP 7.6 g/dL (6.4-8.2)
[2023-03-15 08:36] LABS: INR 4.35 (0.92-1.18)
[2023-03-15 08:53] LABS: BACTERIA,URINE OCCASIONAL /HPF (NOT SEEN); EPITHELIAL CELLS,URINE FEW /HPF (NOT SEEN); MUCUS,URINE MODERATE /HPF (NOT SEEN); RBC,URINE 0-5 /HPF (0-5); WBC,URINE 0-5 /HPF (0-5)
[2023-03-15 11:21] VITALS: BP 154/93; PULSE 106
== END 2023-03-15 11:55 | disposition home or self-care (01) ==
LOC: CC.ED 07:07
DX: I20.9 Angina pectoris, unspecified (principal); R79.1 Abnormal coagulation profile; E78.00 Pure hypercholesterolemia, unspecified; I10 Essential (primary) hypertension; I25.2 Old myocardial infarction; Z95.1 Presence of aortocoronary bypass graft; Z88.8 Allergy status to other drugs, medicaments and biological substances; Z86.73 Personal history of transient ischemic attack (TIA), and cerebral infarction without residual deficits; Z79.01 Long term (current) use of anticoagulants; Z79.899 Other long term (current) drug therapy
CPT/HCPCS: 36415; 71045; 80053; 81001; 82550; 83735; 83880; 84484; 85025; 85610; 85730; 93005; 93010; 99284; 99285; A9270-GY

== ENCOUNTER 2023-08-21 13:06 | Emergency (ER) | payer MEDICARE, BC ==
[2023-08-21 13:21] VITALS: PULSE 90
[2023-08-21 15:03] VITALS: BP 136/76
== END 2023-08-21 15:08 | disposition home or self-care (01) ==
LOC: CC.ED 13:06
DX: S22.41XA Multiple fractures of ribs, right side, initial encounter for closed fracture (principal); I10 Essential (primary) hypertension; E78.00 Pure hypercholesterolemia, unspecified; I25.2 Old myocardial infarction; K21.9 Gastro-esophageal reflux disease without esophagitis; Z95.1 Presence of aortocoronary bypass graft; Z95.5 Presence of coronary angioplasty implant and graft; Z90.49 Acquired absence of other specified parts of digestive tract; Z79.01 Long term (current) use of anticoagulants; Z79.899 Other long term (current) drug therapy; Z88.8 Allergy status to other drugs, medicaments and biological substances; W00.9XXA Unspecified fall due to ice and snow, initial encounter
CPT/HCPCS: 71250; 72131; 99284

== ENCOUNTER 2024-01-07 15:45 | Emergency (ER) | payer MEDICARE, BC ==
[2024-01-07 16:03] VITALS: BP 123/76; PULSE 93
[2024-01-07 16:26] LABS: BASOPHILS ABSOLUTE AUTO 0.02 10^3/uL (0.00-0.50); BASOPHILS PERCENT AUTO 0.2 % (0-1); EOSINOPHILS ABSOLUTE AUTO 0.12 10^3/uL (0.00-1.50); EOSINOPHILS PERCENT AUTO 1.3 % (0-6); HEMATOCRIT 35.5 % (42.0-52.0); HEMOGLOBIN 11.6 g/dL (14.0-18.0); IMMATURE GRAN ABSOLUTE AUTO 0.02 10^3/uL (0.00-0.49); IMMATURE GRAN PERCENT AUTO 0.2 % (0.0-4.9); LYMPHOCYTES PERCENT AUTO 7.6 % (24-44); MEAN CORPUSCULAR HEMOGLOBIN 28.6 pg (27.0-32.0); MEAN CORPUSCULAR HGB CONC 32.7 g/dL (32.0-36.0); MEAN CORPUSCULAR VOLUME 87.7 fL (83.0-97.0); MONOCYTES ABSOLUTE AUTO 0.95 10^3/uL (0.00-1.50); MONOCYTES PERCENT AUTO 10.4 % (0-10); NEUTROPHILS ABSOLUTE AUTO 7.36 x10^3/uL (1.80-8.00); NEUTROPHILS PERCENT AUTO 80.3 % (41-71); PLATELET COUNT,PLT 128 10^3/uL (150-400); RED BLOOD CELL COUNT 4.05 x10^6/uL (4.50-6.00); WHITE BLOOD CELL COUNT,WBC 9.2 10^3/uL (4.0-11.0)
[2024-01-07 16:32] LABS: INR 3.17 (0.92-1.18); PROTHROMBIN TIME 31.5 SEC (9.3-11.3)
[2024-01-07 16:42] LABS: ALBUMIN 3.6 g/dL (3.4-5.0); BILIRUBIN TOTAL 1.2 mg/dL (0.0-1.0); CALCIUM 8.9 mg/dL (8.4-10.1); CREATININE 1.4 mg/dL (0.7-1.3); EST CRCL DRUG DOSING (CG) 32.89 mL/min; POTASSIUM,K 3.8 mEq/L (3.5-5.0); PROTEIN TOTAL,TP 7.4 g/dL (6.4-8.2)
[2024-01-07] MEDS: Diphtheria,Pertussis(Acell),Tetanus Vaccine 0.5 ML Syringe IM ONE (18:25)
== END 2024-01-07 19:05 | disposition home or self-care (01) ==
LOC: CC.ED 15:45
DX: S00.83XA Contusion of other part of head, initial encounter (principal); S51.812A Laceration without foreign body of left forearm, initial encounter; I10 Essential (primary) hypertension; E78.00 Pure hypercholesterolemia, unspecified; Z79.899 Other long term (current) drug therapy; Z90.49 Acquired absence of other specified parts of digestive tract; Z88.8 Allergy status to other drugs, medicaments and biological substances; Z23 Encounter for immunization; W19.XXXA Unspecified fall, initial encounter
CPT/HCPCS: 12002; 36415; 70450; 70486; 80053; 85025; 85610; 90471; 90715; 99283; 99284-25

== ENCOUNTER 2024-01-15 09:02 | Emergency (ER) | payer MEDICARE, BC ==
[2024-01-15 09:16] VITALS: BP 133/78; PULSE 88
== END 2024-01-15 09:45 | disposition home or self-care (01) ==
LOC: CC.ED 09:02
DX: S80.812D Abrasion, left lower leg, subsequent encounter (principal); L08.9 Local infection of the skin and subcutaneous tissue, unspecified; I10 Essential (primary) hypertension; I25.2 Old myocardial infarction; E78.00 Pure hypercholesterolemia, unspecified; Z95.5 Presence of coronary angioplasty implant and graft; Z95.1 Presence of aortocoronary bypass graft; Z90.49 Acquired absence of other specified parts of digestive tract; Z79.899 Other long term (current) drug therapy; Z79.01 Long term (current) use of anticoagulants; Z88.8 Allergy status to other drugs, medicaments and biological substances
CPT/HCPCS: 99282